=== PATIENT | female | born 1945 | race Caucasian/White ===

== ENCOUNTER 2016-10-06 19:41 | Inpatient (IN) | payer MEDICARE ==
[2016-10-06] MEDS ORDERED: SODIUM CHLORIDE 0.9% 500 ML IV STA (20:21)
[2016-10-06] MEDS ORDERED: ACETAMINOPHEN TAB 500 MG TAB PO STA (20:21)
[2016-10-06] MEDS ORDERED: SODIUM CHLORIDE 0.9% 1,000 ML IV STA (20:21)
[2016-10-06] MEDS ORDERED: PIPERACILLIN-TAZOBACTAM 3.375 GM in DEXTROSE/WATER 1 50ML.BAG IVPB STA (20:23)
--- NOTE | 2016-10-06 20:43 | XR ---
EXAMINATION TYPE: XR chest 2V DATE OF EXAM: 10/06/2016 8:36 PM COMPARISON: NONE HISTORY: Fever and chemotherapy last week. Lung cancer. TECHNIQUE: Frontal and lateral views of the chest are obtained. FINDINGS: Heart size is normal. There is a 5 x 2 cm area of increased density in the right upper lob e right paraspinal and right paratracheal region that is also present on old exam of 07/09/2016 and a ppears slightly increased. The other lung pitts are clear. There are no hilar masses. There is no pl eural effusion. Bony thorax is intact. IMPRESSION: Right upper lobe density consistent with tumor that is slightly increased since last exa m and may indicate progression of tumor. Normal heart.
[2016-10-06 21:31] LABS: Anisocytosis Slight; Aty Lym Flag Slight; CH 34.2; CHCM 36.8; HCT 31.5 % (34.0-46.0); HDW 3.26; HGB 11.3 gm/dL (11.4-16.0); MCH 33.5 pg (25.0-35.0); MCHC 35.9 g/dL (31.0-37.0); MCV 93.2 fL (80.0-100.0); Mean Platelet Volume 6.9; RBC 3.37 m/uL (3.80-5.40); RDW 16.3 % (11.5-15.5); WBC (Perox) 1.63
[2016-10-06 21:38] LABS: WBC 1.7 k/uL (3.8-10.6)
[2016-10-06 21:42] LABS: ALT 21 U/L (9-52); AST 17 U/L (14-36); Alkaline Phosphatase 85 U/L (38-126); Anion Gap 8 mmol/L; Blood Urea Nitrogen 19 mg/dL (7-17); Calcium 8.9 mg/dL (8.4-10.2); Carbon Dioxide 28 mmol/L (22-30); Chloride 101 mmol/L (98-107); Glucose 112 mg/dL (74-99); Non-African American GFR(MDRD) >60 (>60 ml/min/1.73 sqM); Potassium 3.7 mmol/L (3.5-5.1); Sodium 137 mmol/L (137-145); Total Bilirubin 0.8 mg/dL (0.2-1.3)
[2016-10-06 21:46] LABS: Add Differential Manual Differential
[2016-10-06 21:53] LABS: Nucleated Red Blood Cells 0 /100 WBC (0-0); Total Cells Counted 100
[2016-10-06 21:55] LABS: Manual Review Performed
--- NOTE | 2016-10-06 23:03 | ED ---
Fever HPI - General Chief Complaint: Fever Stated Complaint: chemo patient-fever Time Seen by Provider: 10/06/16 19:52 Source: patient Mode of arrival: ambulatory Limitations: no limitations - History of Present Illness Initial Comments: She has fever tonight she just finished her mind radiation last week, she is being treated the for non-small cell lung cancer she also had quite fast heart rate her pulse rate is 141 minutes she came in and now fever was 100.5. She denies any headache no neck stiffness she does have a sore throat and has some degree of shortness of breath no abdominal pain no frequency urgency dysuria no weakness of upper or lower extremity, other review of system are negative - Related Data Home Medications Medication Instructions Recorded Confirmed Levothyroxine Sodium [Synthroid] 25 mcg PO DAILY 07/08/16 10/06/16 Mupirocin 2% Oint [Bactroban 2% 1 applic TOPICAL DAILY PRN 07/08/16 10/06/16 Oint] ALPRAZolam [Xanax] 0.25 - 0.5 mg PO DAILY PRN 10/06/16 10/06/16 Albuterol Sulfate [Proair Hfa] 1 - 2 puff INHALATION RT-Q6H PRN 10/06/16 Dronabinol [Marinol] 5 mg PO HS 10/06/16 10/06/16 Magic Mouth Wash 10 ml PO QID 10/06/16 10/06/16 Pantoprazole Sodium [Protonix] 40 mg PO DAILY 10/06/16 10/06/16 Sucralfate [Carafate] 1 gm PO AC-BID 10/06/16 10/06/16 Allergies Allergy/AdvReac Type Severity Reaction Status Date / Time latex Allergy Itching Verified 10/06/16 19:50 aspartame AdvReac Nausea & Verified 10/06/16 19:50 Vomiting & Diarrhea Review of Systems ROS Statement: Those systems with pertinent positive or pertinent negative responses have been documented in the HPI. ROS Other: All systems not noted in ROS Statement are negative. Past Medical History Past Medical History: Cancer, GERD/Reflux, Thyroid Disorder Additional Past Medical History / Comment(s): hypoglycemia, lung CA History of Any Multi-Drug Resistant Organisms: MRSA Date of last positivie culture/infection: 2007 MDRO Source:: vagina Past Surgical History: Cholecystectomy, Hysterectomy, Orthopedic Surgery, Tonsillectomy Additional Past Surgical History / Comment(s): sinus surgery x 3, bladder stent , lt foot with screws, EGD 07/10/16, left arm surgery Past Anesthesia/Blood Transfusion Reactions: No Reported Reaction Past Psychological History: No Psychological Hx Reported Smoking Status: Former smoker Past Alcohol Use History: None Reported Additional Past Alcohol Use History / Comment(s): smoked 7+ years quit 2011 uses vapor currently Past Drug Use History: None Reported - Past Family History Brother(s) Family Medical History: Cancer Additional Family Medical History / Comment(s): nonhodgkins General Exam - General Exam Comments Initial Comments: General: The patient is awake and alert, in no distress, and does not appear acutely ill. Skin: Skin is warm and dry and no rashes or lesions are noted. Eye: Pupils are equal, round and reactive to light, extra-ocular movements are intact; there is normal conjunctiva bilaterally. Ears, nose, mouth and throat: There are moist mucous membranes and no oral lesions. Neck: The neck is supple, there is no tenderness or JVD. Cardiovascular: There is a regular rate and rhythm. No murmur, rub or gallop is appreciated. Noticed tachycardia, heart rate is around 1 14 bpm Respiratory: To auscultation bilateral, crease breath sounds bilaterally some crackles as well Gastrointestinal: Soft, non-distended, non-tender abdomen without masses or organomegaly noted. There is no rebound or guarding present. Bowel sounds are unremarkable. Back: There is no tenderness to palpation in the midline. There is no obvious deformity. Musculoskeletal: Normal ROM, no tenderness, There is no pedal edema. There is no calf tenderness or swelling. No cords were appreciated. Neurological: CN II-XII intact, Cranial nerves III through XII are intact. There are no obvious motor or sensory deficits. Coordination appears grossly intact. Speech is normal. Psychiatric: Cooperative, appropriate mood & affect, normal judgment. Limitations: no limitations Course Vital Signs 10/06/16 19:45 Temperature 100.3 F H Pulse Rate 141 H Respiratory 20 Rate Blood Pressure 114/67 O2 Sat by Pulse 98 Oximetry She is reassessed at oh 22 for T, she still has a heart rate about 1:30 and blood pressures in the lower side blood pressure at that time was 95 systolic over 65 considering her lung cancer fever and tachycardia and hypotension I think she ought to be observed for at least 24 hours, white count is 1.7, compressive metabolic panel is negative flu as well as strep are negative chest x-ray which showed slightly enlarged lung findings no clear infiltrate was identified Medical Decision Making - Lab Data Result diagrams: 10/06/16 21:05 10/06/16 21:05 Lab Results 10/06/16 10/06/16 10/06/16 Range/Units 21:00 21:05 21:05 WBC 1.7 L* (3.8-10.6) k/uL RBC 3.37 L (3.80-5.40) m/uL Hgb 11.3 L (11.4-16.0) gm/dL Hct 31.5 L (34.0-46.0) % MCV 93.2 (80.0-100.0) fL MCH 33.5 (25.0-35.0) pg MCHC 35.9 (31.0-37.0) g/dL RDW 16.3 H (11.5-15.5) % Plt Count 236 (150-450) k/uL Neutrophils % (Manual) 65.0 % Lymphocytes % (Manual) 22.0 % Monocytes % (Manual) 13.0 % Neutrophils # (Manual) 1.1 L (1.3-7.7) k/uL Lymphocytes # (Manual) 0.4 L (1.0-4.8) k/uL Monocytes # (Manual) 0.2 (0-1.0) k/uL Nucleated RBCs 0 (0-0) /100 WBC Manual Slide Review Performed Anisocytosis Slight Sodium 137 (137-145) mmol/L Potassium 3.7 (3.5-5.1) mmol/L Chloride 101 (98-107) mmol/L Carbon Dioxide 28 (22-30) mmol/L Anion Gap 8 mmol/L BUN 19 H (7-17) mg/dL Creatinine 0.71 (0.52-1.04) mg/dL Est GFR (MDRD) Af Amer >60 (>60 ml/min/1.73 sqM) Est GFR (MDRD) Non-Af >60 (>60 ml/min/1.73 sqM) Glucose 112 H (74-99) mg/dL Calcium 8.9 (8.4-10.2) mg/dL Total Bilirubin 0.8 (0.2-1.3) mg/dL AST 17 (14-36) U/L ALT 21 (9-52) U/L Alkaline Phosphatase 85 (38-126) U/L Total Protein 7.0 (6.3-8.2) g/dL Albumin 4.0 (3.5-5.0) g/dL Influenza Type A RNA (Not Detectd) Influenza Type B (PCR) (Not Detectd) Group A Strep Rapid Negative (Negative) 10/06/16 Range/Units 21:05 WBC (3.8-10.6) k/uL RBC (3.80-5.40) m/uL Hgb (11.4-16.0) gm/dL Hct (34.0-46.0) % MCV (80.0-100.0) fL MCH (25.0-35.0) pg MCHC (31.0-37.0) g/dL RDW (11.5-15.5) % Plt Count (150-450) k/uL Neutrophils % (Manual) % Lymphocytes % (Manual) % Monocytes % (Manual) % Neutrophils # (Manual) (1.3-7.7) k/uL Lymphocytes # (Manual) (1.0-4.8) k/uL Monocytes # (Manual) (0-1.0) k/uL Nucleated RBCs (0-0) /100 WBC Manual Slide Review Anisocytosis Sodium (137-145) mmol/L Potassium (3.5-5.1) mmol/L Chloride (98-107) mmol/L Carbon Dioxide (22-30) mmol/L Anion Gap mmol/L BUN (7-17) mg/dL Creatinine (0.52-1.04) mg/dL Est GFR (MDRD) Af Amer (>60 ml/min/1.73 sqM) Est GFR (MDRD) Non-Af (>60 ml/min/1.73 sqM) Glucose (74-99) mg/dL Calcium (8.4-10.2) mg/dL Total Bilirubin (0.2-1.3) mg/dL AST (14-36) U/L ALT (9-52) U/L Alkaline Phosphatase (38-126) U/L Total Protein (6.3-8.2) g/dL Albumin (3.5-5.0) g/dL Influenza Type A RNA Not Detected (Not Detectd) Influenza Type B (PCR) Not Detected (Not Detectd) Group A Strep Rapid (Negative) Disposition Clinical Impression: Fever, Tachycardia, Hypotension, History of lung cancer Disposition: ADMITTED IP TO THIS HOSP Condition: Good
[2016-10-06] MEDS ORDERED: ALBUTEROL NEBULIZED 2.5 MG/3 ML INHALATION PRN (23:16)
[2016-10-06] MEDS ORDERED: MUPIROCIN 2% OINT 22 GM TUBE TOPICAL PRN (23:16)
[2016-10-06] MEDS ORDERED: DIAZEPAM 2 MG TAB PO STA (23:36)
[2016-10-07 00:59] VITALS: BMI 21.2
[2016-10-07 01:05] LABS: Amorphous Sediment,Urine Occasional /hpf; Appearance,Urine Turbid (Clear); Bacteria,Urine Rare /hpf; Bilirubin,Urine Negative (Negative); Glucose,Urine (UA) Negative (Negative); Ketones,Urine Trace (Negative); Leukocyte Esterase,Urine Large (Negative); Mucus,Urine Rare /hpf; Nitrite,Urine Negative (Negative); Particle Count 5229; Protein,Urine Trace (Negative); RBC,Urine 4 /hpf (0-5); Specific Gravity,Urine 1.033 (1.001-1.035); Squamous Epithelial Cell,Urine 8 /hpf (0-4); Transitional Epi Cells,Urine 1 /hpf (0-1); UA Billing (MACRO vs. MICRO) MICRO; Urobilinogen,Urine <2.0 mg/dL (<2.0); WBC,Urine 59 /hpf (0-5)
[2016-10-07] MEDS ORDERED: PANTOPRAZOLE 40 MG TABLET PO STA (01:13)
[2016-10-07] MEDS ORDERED: DRONABINOL 2.5 MG CAP PO STA (01:13)
[2016-10-07] MEDS: MORPHINE SULFATE 2 MG/ML SYRINGE IVP PRN ×5 (04:20→21:50)
[2016-10-07] MEDS ORDERED: SUCRALFATE 1 GM TAB PO SCH (07:30)
[2016-10-07] MEDS: ALPRAZolam 0.25 MG TAB PO SCH ×2 (08:03→21:47)
[2016-10-07] MEDS: LEVOTHYROXINE 25 MCG TAB PO SCH (08:03)
[2016-10-07] MEDS: PIPERACILLIN-TAZOBACTAM 3.375 GM in DEXTROSE/WATER 1 50ML.BAG IVPB SCH ×2 (08:13→18:02)
[2016-10-07] MEDS ORDERED: MAGIC MOUTH WASH PO SCH (09:00)
[2016-10-07] MEDS ORDERED: PANTOPRAZOLE 40 MG TABLET PO SCH (09:00)
--- NOTE | 2016-10-07 15:22 | P.CNPUL ---
History of Present Illness Consult date: 10/07/16 Requesting physician: Maikol Cox Reason for consult: lung mass Chief complaint: Nausea, vomiting, weakness History of present illness: This is a very pleasant 71-year-old female patient who follows with Dr. Tejeda as her primary care physician. She has a history of hypothyroidism, gastroesophageal reflux disease. She was referred to Dr. Flores on 2015 after having abnormal findings and suspected right upper lobe lung mass and she does have a 15 year pack per day smoking history and had developed weight loss. She had undergone bronchoscopy with biopsies on 07/21/2016 which confirmed non-small cell carcinoma. A PET scan revealed metastatic right bronchial, right hilar, infrahilar and subcarinal lymphadenopathy as well. Since that time she has completed 7 rounds of chemotherapy and 33 of radiation therapy. She completed both just last week. 2 days later she had developed headache and neck pain. The following day she developed nausea and vomiting and difficulty maintaining any nutrition. She had difficulty in swallowing secondary to pain. She presented here yesterday after developing a fever of 100.7. She had ongoing dehydration and weakness and poor urine output. He presented here last evening for the same. She was found to be neutropenic with a WBC of 1.7. Her urine appeared infected and a culture is pending. Influenza screen was negative rapid strep screen negative. She has been hydrated with 0.9 normal saline at 100 mL per hour. She was initiated on Zosyn. Her chest x- ray revealed a right upper lobe density consistent with her mass. She is seen today in consultation. She is awake and alert in no acute distress. She states she is feeling quite a bit better today as compared to yesterday already. She denies any worsening shortness of breath, cough or congestion. She does take morphine prior to her meals and she is able to swallow her food better. She is maintaining good O2 saturations in the high 90s on room air. No fever, no chills or night sweats. Review of Systems 14 point review of system was conducted. All negative other than as mentioned in HPI. Past Medical History Past Medical History: Cancer, GERD/Reflux, Thyroid Disorder Additional Past Medical History / Comment(s): Non-small cell lung CA, completed 7 rounds of chemotherapy and 33 radiation treatments in September 2016. History of Any Multi-Drug Resistant Organisms: MRSA Date of last positivie culture/infection: 2007 MDRO Source:: vagina Past Surgical History: Cholecystectomy, Hysterectomy, Orthopedic Surgery, Tonsillectomy Additional Past Surgical History / Comment(s): sinus surgery x 3, bladder stent , lt foot with screws, EGD 07/10/16, left arm surgery Past Anesthesia/Blood Transfusion Reactions: No Reported Reaction Past Psychological History: No Psychological Hx Reported Smoking Status: Never smoker Past Alcohol Use History: None Reported Additional Past Alcohol Use History / Comment(s): smoked 7+ years quit 2010 uses vapor currently Past Drug Use History: None Reported - Past Family History Brother(s) Family Medical History: Cancer Additional Family Medical History / Comment(s): nonhodgkins Medications and Allergies Home Medications Medication Instructions Recorded Confirmed Type Levothyroxine Sodium [Synthroid] 25 mcg PO DAILY 07/08/16 10/06/16 History Mupirocin 2% Oint [Bactroban 2% 1 applic TOPICAL DAILY PRN 07/08/16 10/06/16 History Oint] ALPRAZolam [Xanax] 0.25 - 0.5 mg PO DAILY PRN 10/06/16 10/06/16 History Albuterol Sulfate [Proair Hfa] 1 - 2 puff INHALATION RT-Q6H PRN 10/06/16 History Dronabinol [Marinol] 5 mg PO HS 10/06/16 10/06/16 History Magic Mouth Wash 10 ml PO QID 10/06/16 10/06/16 History Pantoprazole Sodium [Protonix] 40 mg PO DAILY 10/06/16 10/06/16 History Sucralfate [Carafate] 1 gm PO AC-BID 10/06/16 10/06/16 History Allergies Allergy/AdvReac Type Severity Reaction Status Date / Time latex Allergy Itching Verified 10/06/16 19:50 aspartame AdvReac Nausea & Verified 10/06/16 19:50 Vomiting & Diarrhea Physical Exam Vitals: Vital Signs Temp Pulse Pulse Resp BP BP Pulse Ox 10/07/16 08:00 89 16 10/07/16 07:00 98.3 F 89 16 107/51 98 10/07/16 00:11 98.4 F 101 H 16 111/65 99 10/06/16 23:42 99 F 94 18 108/52 97 10/06/16 23:26 95 18 98/57 96 Intake and Output 10/06/16 10/07/16 10/07/16 22:59 06:59 14:59 Intake Total 1000 Balance 1000 Intake: IV 600 Sodium Chloride 0.9% 1, 600 000 ml @ 100 mls/hr IV . Q10H STA Rx#:[id number] Oral 400 Other: # Voids 2 Weight 61.5 kg GENERAL EXAM: Alert, comfortable in no apparent distress. HEAD: Normocephalic. EYES: Normal reaction of pupils, equal size. NOSE: Clear with pink turbinates. THROAT: No erythema or exudates. NECK: No masses, no JVD. CHEST: No chest wall deformity. LUNGS: Equal air entry with no crackles, wheeze, rhonchi or dullness. CVS: S1 and S2 normal with no audible mumurs, regular rhythm. ABDOMEN: No hepatosplenomegaly, normal bowel sounds, no guarding or rigidity. SPINE: No scoliosis or deformity SKIN: No rashes CENTRAL NERVOUS SYSTEM: No focal deficits, tone is normal in all 4 extremities. Extremities: There is no significant peripheral edema. No clubbing, no cyanosis. Peripheral pulses are intact. Results - Laboratory Findings CBC and BMP: 10/06/16 21:05 10/06/16 21:05 Abnormal lab findings: Abnormal Labs 10/06/16 23:35 Urine Appearance Turbid H Urine Protein Trace H Urine Ketones Trace H Ur Leukocyte Esterase Large H Urine WBC 59 H Ur Squamous Epith Cells 8 H Amorphous Sediment Occasional H Urine Bacteria Rare H Urine Mucus Rare H - Diagnostic Findings Chest x-ray: image reviewed Assessment and Plan Plan: Impression: #1 Generalized weakness and fatigue secondary to neutropenia following chemo/ radiation therapy. #2 Neutropenia. #3 Urinary tract infection. #4 Non-small cell lung cancer status post 7 rounds of chemotherapy and 33 radiation treatments both of which were completed 1 week ago. #5 History of chronic tobacco dependence. #6 Hypothyroidism. #7 Gastroesophageal reflux disease. Plan: The patient was seen and evaluated by Dr. Espinoza. Her chest x-ray and labs were reviewed. We'll continue to hydrate the patient. She remains on Zosyn. Will await final urine culture results. Her urine output has improved. We'll continue with pain management. She is feeling quite a bit better already today as compared to yesterday. We'll increase her activity as tolerated. We'll continue to follow make further recommendations based on her clinical status. Time with Patient: Greater than 30
[2016-10-07] MEDS: SUCRALFATE 1 GM TAB PO SCH (17:57)
--- NOTE | 2016-10-07 18:04 | P.CONS ---
History of Present Illness - Reason for Consult Consult date: 10/07/16 lung cancer Requesting physician: Rony Carter - Chief Complaint fever - History of Present Illness Ms. Yoo is a very pleasant 71 year old female pt of Dr. Wolf who presented with nausea and mild "stomach pain", CXR revealed RUL abnormality , CT Chest showed 3.5 cm RUL mass with hilar and subcarinal lymphadenopathy, PET Scan dated 07/19/16 revealed intense uptake of 11.9 in RUL mass, R hilar & infrahilar lymphadenopathy of 10.0, as well as increase uptake in left thoracic inlet of 5.9 of unknown etiology, no distant mets, bronchoscopy on 07/21/[address] Flores revealed NSCLC. SHe was experiencing anoreixa, wt. loss about 15 lbs in 2 months and nausea. She started treatment with weekly carbo and taxol and concurrent radiation, she completed 7 cycles of chemo and 33 radiation treatments to RUL lung mass last week. The day after radiation competed she started having significant pain when swallowing, sharp, this pain radiates to chest and back and into her head, she has an appetite but has been vomiting for 2 days prior to admission, she states vomiting because of the pain, she does not have oral irritation but in her chest area the pain is significant when she tried to swallow. Over the weekend she started having fevers and her temp was as high a 100.7F so she was instructed to come to hospital. Since admission she had 100.3F fever but none since, she is being seen by ID and on abx, Pulmonary is following as well, she is on carafate, cools solution and pain meds , her pain is not well controlled. She is ambulatory, denies vomiting since admit, no hematemesis, hemoptysis, dysuria, diarrhea or constipation. Review of Systems All systems: negative Constitutional: Reports as per HPI Past Medical History Past Medical History: Cancer, GERD/Reflux, Thyroid Disorder Additional Past Medical History / Comment(s): Non-small cell lung CA, completed 7 rounds of chemotherapy and 33 radiation treatments in September 2016. History of Any Multi-Drug Resistant Organisms: MRSA Year Discovered:: 2007 MDRO Source:: vagina Past Surgical History: Cholecystectomy, Hysterectomy, Orthopedic Surgery, Tonsillectomy Additional Past Surgical History / Comment(s): sinus surgery x 3, bladder stent , lt foot with screws, EGD 07/10/16, left arm surgery Past Anesthesia/Blood Transfusion Reactions: No Reported Reaction Past Psychological History: No Psychological Hx Reported Smoking Status: Never smoker Past Alcohol Use History: None Reported Additional Past Alcohol Use History / Comment(s): smoked 7+ years quit 2010 uses vapor currently Past Drug Use History: None Reported - Past Family History Brother(s) Family Medical History: Cancer Additional Family Medical History / Comment(s): nonhodgkins Medications and Allergies Home Medications Medication Instructions Recorded Confirmed Type Levothyroxine Sodium [Synthroid] 25 mcg PO DAILY 07/08/16 10/06/16 History Mupirocin 2% Oint [Bactroban 2% 1 applic TOPICAL DAILY PRN 07/08/16 10/06/16 History Oint] ALPRAZolam [Xanax] 0.25 - 0.5 mg PO DAILY PRN 10/06/16 10/06/16 History Albuterol Sulfate [Proair Hfa] 1 - 2 puff INHALATION RT-Q6H PRN 10/06/16 History Dronabinol [Marinol] 5 mg PO HS 10/06/16 10/06/16 History Magic Mouth Wash 10 ml PO QID 10/06/16 10/06/16 History Pantoprazole Sodium [Protonix] 40 mg PO DAILY 10/06/16 10/06/16 History Sucralfate [Carafate] 1 gm PO AC-BID 10/06/16 10/06/16 History Allergies Allergy/AdvReac Type Severity Reaction Status Date / Time latex Allergy Itching Verified 10/06/16 19:50 aspartame AdvReac Nausea & Verified 10/06/16 19:50 Vomiting & Diarrhea Physical Exam Vitals: Vital Signs Temp Pulse Pulse Resp BP BP Pulse Ox 10/07/16 16:07 98.9 F 88 20 108/55 98 10/07/16 08:00 89 16 10/07/16 07:00 98.3 F 89 16 107/51 98 10/07/16 00:11 98.4 F 101 H 16 111/65 99 10/06/16 23:42 99 F 94 18 108/52 97 10/06/16 23:26 95 18 98/57 96 Intake and Output 10/07/16 10/07/1610/07/17 06:59 14:59 22:59 Intake Total 1000 120 Balance 1000 120 Intake: IV 600 Sodium Chloride 0.9% 1, 600 000 ml @ 100 mls/hr IV . Q10H STA Rx#:[id number] Oral 400 120 Other: # Voids 2 3 Weight 61.5 kg - Constitutional General appearance: average body habitus, cooperative, no acute distress - EENT Eyes: anicteric sclerae, normal appearance ENT: normal oropharynx - Neck Neck: no lymphadenopathy - Respiratory Respiratory: bilateral: CTA - Cardiovascular Heart sounds: normal: S1, S2 leg Peripheral Edema: bilateral: None - Gastrointestinal General gastrointestinal: normal bowel sounds - Neurologic Neurologic: CNII-XII intact - Musculoskeletal Musculoskeletal: strength equal bilaterally - Psychiatric Psychiatric: A&O x's 3, appropriate affect, intact judgment & insight Results CBC & Chem 7: 10/06/16 21:05 10/06/16 21:05 Labs: Abnormal Lab Results - Last 24 Hours (Table) 10/06/16 Range/Units 23:35 Urine Appearance Turbid H (Clear) Urine Protein Trace H (Negative) Urine Ketones Trace H (Negative) Ur Leukocyte Esterase Large H (Negative) Urine WBC 59 H (0-5) /hpf Ur Squamous Epith Cells 8 H (0-4) /hpf Amorphous Sediment Occasional H (None) /hpf Urine Bacteria Rare H (None) /hpf Urine Mucus Rare H (None) /hpf Microbiology - Last 24 Hours (Table) 10/06/16 23:35 Urine Culture - Preliminary Urine,Voided Assessment and Plan (1) Radiation-induced esophagitis Narrative/Plan: Pt is currently on all supportive meds, pain meds will be titrated for comfort. We discussed staying on liquid, VERY soft diet and she agreed. Status: Acute (2) Fever Narrative/Plan: Pt is on abx and granix was started. Her ANC is 1100 but she is febrile. Status: Acute (3) Mass of upper lobe of right lung Narrative/Plan: Pt just completed treatment last week, follow up imaging for treatment evaluation would not be ordered for a few weeks yet. Slight changes noted on CXR report have been noted and scans will be ordered in a few weeks. Status: Chronic
--- NOTE | 2016-10-07 18:44 | HP ---
DATE OF ADMISSION: 10/06/2016 PRESENTING COMPLAINT: Fever. HISTORY OF PRESENTING COMPLAINT: This is a pleasant 71-year-old patient of Dr. Tejeda, followed by Dr. Wolf. Patient has a diagnosis of [id number] lung cancer; just finished chemo and radiation treatment. Radiation was done by Dr. John. Patient's chronic other stable conditions include GERD, hypothyroidism. Patient presents with a fever of 100.5 and decreased urine output, strong-appearing urine. Patient's appetite is fair, but patient has radiation side effects and is finding it difficult to swallow, with some vomiting, for which she has been given Magic solution, not with much help. Patient's urine came back positive. She was started for Zosyn and admitted for the same. REVIEW OF SYSTEMS: CONSTITUTIONAL: Weak, tired, febrile. HEENT: None. RESPIRATORY: None. CARDIOVASCULAR: None. GASTROINTESTINAL: Some painful swallowing. GENITOURINARY: Strong urine. MUSCULOSKELETAL: None. DERMATOLOGIC: None. HEMATOLOGIC: None. LYMPHATIC: None. PSYCHIATRY: None. NEUROLOGICAL: None. PAST MEDICAL HISTORY: 1. GERD. 2. Hypothyroid. 3. [id number] lung cancer. PAST SURGICAL HISTORY: 1. Cholecystectomy. 2. Hysterectomy. 3. Orthopedic surgery. 4. Tonsillectomy. 5. Sinus surgery x2. 6. Bladder stent. 7. Left foot with screws. 8. EGD. 9. Left arm surgery. SOCIAL HISTORY: Patient smoked for about 7 years, stopped in 2010. . Homemaker. FAMILY HISTORY: Non-Hodgkin's lymphoma. HOME MEDICATIONS: 1. Protonix 40 mg a day. 2. Magic mouthwash 10 mL q.i.d. 3. Marinol 5 mg at bedtime. 4. ProAir 1 to 2 puffs q.6 p.r.n. 5. Carafate 1 gram before meals b.i.d. 6. Synthroid 25 mcg a day. 7. Bactroban 2% topically daily p.r.n. 8. Xanax 0.25 to 0.5 mg p.o. daily p.r.n. ALLERGIES: 1. LATEX. 2. ASPARTAME. On examination, temperature 98.3, pulse 89, respiratory rate 16, blood pressure 107/51, pulse ox 98% on room air. Initially patient had a temperature of 100.3 with a pulse of 141. GENERAL APPEARANCE: Thin build. Sitting up. Tired-appearing. EYES: Pupils equal. Conjunctivae normal. HEENT: Oral cavity normal. NECK: JVD not raised. Mass not palpable. RESPIRATORY: Effort normal. LUNGS: Slightly decreased breath sounds. CARDIOVASCULAR: First and second sounds normal. No edema. ABDOMEN: Soft, nontender. Liver and spleen not palpable. LYMPHATIC: No lymph node palpable in neck or axillae. PSYCHIATRY: Alert and oriented x3. Mood and affect normal. NEUROLOGICAL: Pupils equal. Cranial nerves grossly intact. Power and sensation grossly intact. INVESTIGATIONS: White count 1.7, hemoglobin 11.3, platelets 236. Potassium 3.7. BUN 19, creatinine 0.71. UA positive for leukocyte esterase, large WBC. ASSESSMENT: 1. Febrile neutropenia from underlying urinary tract infection. Patient just finished chemotherapy. 2. [id number] lung cancer. Patient just finished her chemotherapy and radiation treatment. Last she was told that her tumor had shrunk. 3. Bicytopenia from chemotherapy. 4. Gastroesophageal reflux disease. 5. Hypothyroidism. 6. Acute urinary tract infection. PLAN: Patient is IV Zosyn. Home medications are resumed. Care was discussed with the patient. Subcutaneous heparin for DVT prophylaxis. Will check patient's thyroid levels.
[2016-10-07] MEDS: FILGRASTIM-SNDZ 300 MCG/0.5 ML SYRINGE SQ SCH (19:07)
[2016-10-07] MEDS: DRONABINOL 2.5 MG CAP PO SCH (21:47)
[2016-10-07] MEDS: PANTOPRAZOLE 40 MG TABLET PO SCH (21:47)
[2016-10-08] MEDS: PIPERACILLIN-TAZOBACTAM 3.375 GM in DEXTROSE/WATER 1 50ML.BAG IVPB SCH ×4 (00:40→23:15)
[2016-10-08] MEDS: MORPHINE SULFATE 2 MG/ML SYRINGE IVP PRN ×4 (02:41→23:15)
[2016-10-08] MEDS: ONDANSETRON 4 MG/2 ML VIAL IVP PRN (09:11)
[2016-10-08] MEDS: SUCRALFATE 1 GM TAB PO SCH ×3 (10:09→18:00)
[2016-10-08] MEDS: LEVOTHYROXINE 25 MCG TAB PO SCH (10:09)
[2016-10-08] MEDS: ALPRAZolam 0.25 MG TAB PO SCH ×2 (10:09→21:06)
--- NOTE | 2016-10-08 13:37 | P.PN ---
Subjective This is a very pleasant 71-year-old female patient who follows with Dr. Tejeda as her primary care physician. She has a history of hypothyroidism, gastroesophageal reflux disease. She was referred to Dr. Flores on 2015 after having abnormal findings and suspected right upper lobe lung mass and she does have a 15 year pack per day smoking history and had developed weight loss. She had undergone bronchoscopy with biopsies on 07/21/2016 which confirmed non-small cell carcinoma. A PET scan revealed metastatic right bronchial, right hilar, infrahilar and subcarinal lymphadenopathy as well. Since that time she has completed 7 rounds of chemotherapy and 33 of radiation therapy. She completed both just last week. 2 days later she had developed headache and neck pain. The following day she developed nausea and vomiting and difficulty maintaining any nutrition. She had difficulty in swallowing secondary to pain. She presented here yesterday after developing a fever of 100.7. She had ongoing dehydration and weakness and poor urine output. He presented here last evening for the same. She was found to be neutropenic with a WBC of 1.7. Her urine appeared infected and a culture is pending. Influenza screen was negative rapid strep screen negative. She has been hydrated with 0.9 normal saline at 100 mL per hour. She was initiated on Zosyn. Her chest x- ray revealed a right upper lobe density consistent with her mass. The patient is seen again today 10/08/2016 in follow-up. She is awake and alert in no acute distress. She is feeling better today as compared to yesterday. She is somewhat stronger. She did have a small emesis this morning but has since been able to keep a few bites down. No diarrhea. She denies any shortness of breath, cough or congestion. Room air saturations in the upper 90s. Her urine culture remains in progress. Currently afebrile. No orthostatic hypotension. Objective - Vital Signs Vital signs: Vital Signs Temp 98.3 F 10/08/16 08:04 Pulse 90 10/08/16 08:04 Resp 18 10/08/16 08:04 BP 105/50 10/08/16 08:04 Pulse Ox 90 L 10/08/16 08:04 Intake & Output 10/07/16 10/08/16 10/08/16 18:59 06:59 18:59 Intake Total 120 300 Balance 120 300 Intake: IV 50 Piperacillin-Tazobactam 3 50 .375 gm In Dextrose/Water 1 50ml.bag @ 12.5 mls/hr IVPB Q8HR [facility] Rx#: [id number] Oral 120 250 Other: Voiding Method Toilet Toilet # Voids 3 1 - Exam GENERAL EXAM: Alert, fairly comfortable in no apparent distress. HEAD: Normocephalic. EYES: Normal reaction of pupils, equal size. NOSE: Clear with pink turbinates. THROAT: Slight erythema no exudates. NECK: No masses, no JVD. CHEST: No chest wall deformity. LUNGS: Equal air entry with no crackles, wheeze, rhonchi or dullness. CVS: S1 and S2 normal with no audible murmurs, regular rhythm. ABDOMEN: No hepatosplenomegaly, normal bowel sounds, no guarding or rigidity. SPINE: No scoliosis or deformity SKIN: No rashes CENTRAL NERVOUS SYSTEM: No focal deficits, tone is normal in all 4 extremities. Extremities: There is no peripheral edema. No clubbing, no cyanosis. Peripheral pulses are intact intact. - Labs CBC & Chem 7: 10/06/16 21:05 10/06/16 21:05 Labs: Microbiology - Last 24 Hours (Table) 10/06/16 23:35 Urine Culture - Preliminary Urine,Voided Assessment and Plan Plan: Impression: #1 Generalized weakness and fatigue secondary to neutropenia following chemo/ radiation therapy. #2 Neutropenia with febrile illness. #3 Urinary tract infection, culture pending. #4 Non-small cell lung cancer status post 7 rounds of chemotherapy (carbo and Taxol) and 33 radiation treatments both of which were completed 1 week ago. #5 History of chronic tobacco dependence. #6 Hypothyroidism. #7 Gastroesophageal reflux disease. Plan: The patient was seen and evaluated by Dr. Espinoza. We'll continue to hydrate the patient. She remains on Zosyn. Will await final urine culture results. Her urine output has improved. We'll continue with pain management. We'll increase her activity as tolerated. We'll continue to follow make further recommendations based on her clinical status.
[2016-10-08] MEDS: FILGRASTIM-SNDZ 300 MCG/0.5 ML SYRINGE SQ SCH (19:14)
[2016-10-08] MEDS: DRONABINOL 2.5 MG CAP PO SCH (21:06)
[2016-10-08] MEDS: PANTOPRAZOLE 40 MG TABLET PO SCH (21:06)
[2016-10-08] MEDS: MAG HYDROX/AL HYDROX/SIMETH 30 ML, LIDOCAINE VISCOUS 30 ML, diphenhydrAMINE ELIXIR 75 M... PO SCH ×8 (21:39→23:21)
--- NOTE | 2016-10-08 23:12 | PN ---
DATE OF SERVICE: 10/08/2016 PRESENTING COMPLAINT: Difficulty swallowing and fever. INTERVAL HISTORY: This is a patient having painful swallowing, probably likely from aphthous ulcer from chemoradiation. She also had a UTI. The fever has come down. at the bedside. Barely able to eat. Review of systems done for constitutional, cardiovascular, GI, pulmonary; relevant findings as above. Current medications include IV Zosyn. On examination, temperature 99, pulse 95, respiration 18, blood pressure 105/50. GENERAL APPEARANCE: Sitting up, comfortable. EYES: Pupils equal. Conjunctivae normal. NECK: JVD not raised. RESPIRATORY: Effort normal. LUNGS: Fair air entry. CARDIOVASCULAR: First and second sounds normal. No edema. ABDOMEN: Soft, nontender. PSYCHIATRY: Alert and oriented x3. Mood and affect normal. INVESTIGATIONS: No blood work from today. TSH is 1.5. ASSESSMENT: 1. Febrile neutropenia from underlying urinary tract infection, clinically improving. 2. Yvr-ggdou-aelm lung cancer. Patient just finished chemo and radiation treatment, and she was last told that her tumor had shrunk. 3. Bicytopenia from chemotherapy. 4. Odynophagia, likely from esophageal ulcerations. 5. Gastroesophageal reflux disease. 6. Hypothyroidism. 7. Acute urinary tract infection. PLAN: Will try Angel's solution. Will discontinue the Carafate, as this will not be beneficial ( ) absorption of the medications. Care was discussed in detail with the patient and her .
[2016-10-09] MEDS: PIPERACILLIN-TAZOBACTAM 3.375 GM in DEXTROSE/WATER 1 50ML.BAG IVPB SCH ×2 (07:48→15:52)
[2016-10-09] MEDS: MORPHINE SULFATE 2 MG/ML SYRINGE IVP PRN ×3 (07:49→17:08)
[2016-10-09] MEDS: MAG HYDROX/AL HYDROX/SIMETH 30 ML, LIDOCAINE VISCOUS 30 ML, diphenhydrAMINE ELIXIR 75 M... PO SCH ×12 (07:53→21:08)
[2016-10-09] MEDS: LEVOTHYROXINE 25 MCG TAB PO SCH (08:35)
[2016-10-09] MEDS: SUCRALFATE 1 GM TAB PO SCH ×3 (08:35→17:06)
[2016-10-09] MEDS: ALPRAZolam 0.25 MG TAB PO SCH ×2 (08:37→21:09)
[2016-10-09 09:21] LABS: Anion Gap 8 mmol/L; Blood Urea Nitrogen 5 mg/dL (7-17); Calcium 8.1 mg/dL (8.4-10.2); Carbon Dioxide 27 mmol/L (22-30); Chloride 102 mmol/L (98-107); Glucose 140 mg/dL (74-99); Non-African American GFR(MDRD) >60 (>60 ml/min/1.73 sqM); Potassium 3.3 mmol/L (3.5-5.1); Sodium 137 mmol/L (137-145)
[2016-10-09 09:37] LABS: Anisocytosis Slight; Basophils % (A) 0 %; CHCM 35.9; Eosinophils % (A) 0 %; HCT 26.9 % (34.0-46.0); HDW 3.65; Luc # (Auto) 0.16; Luc % (Auto) 3; Lymphocytes # (A) 0.2 k/uL (1.0-4.8); Lymphocytes % (A) 4 %; MCH 33.9 pg (25.0-35.0); MCHC 35.6 g/dL (31.0-37.0); MCV 95.3 fL (80.0-100.0); Macrocytosis Slight; Mean Platelet Volume 6.7; Monocytes # (A) 0.3 k/uL (0-1.0); Monocytes % (A) 5 %; Neutrophils # (A) 5.3 k/uL (1.3-7.7); Neutrophils % (A) 89 %; Poikilocytosis Slight; RBC 2.82 m/uL (3.80-5.40); RDW 17.1 % (11.5-15.5)
[2016-10-09 09:42] LABS: HGB 9.6 gm/dL (11.4-16.0)
--- NOTE | 2016-10-09 14:06 | P.PN ---
Subjective Principal diagnosis: Neutropenic fever 71 year old female with history of stage IIIA NSCLC s/p concurrent chemoradiation to a dose of 66 Gy finishing her treatment on 10/02/2016. She unfortunately has been admitted with fever and low WBC. When she first presented she also had tachycardia and was likely dehydrated. At this time the patient notes she is feeling better. She does continue to have difficulty with esophagitis secondary to her radiotherapy. Initially she had some relief from the magic mouth-wash but this is now requiring pain medication. It is likely because of her difficulty swallowing that the patient has not been eating or drinking as well the past few days prior to her admission. At this time she denies dyspnea, cough, or urinary complaints. Objective - Vital Signs Vital signs: Vital Signs Temp 99.4 F 10/09/16 08:24 Pulse 96 10/09/16 08:24 Resp 18 10/09/16 08:24 BP 109/51 10/09/16 08:24 Pulse Ox 92 L 10/09/16 08:24 Intake & Output 10/08/16 10/09/16 10/09/16 18:59 06:59 18:59 Intake Total 50 Balance 50 Intake: IV 50 Piperacillin-Tazobactam 3 50 .375 gm In Dextrose/Water 1 50ml.bag @ 12.5 mls/hr IVPB Q8HR [facility] Rx#: [id number] Other: Voiding Method Toilet Toilet Toilet # Voids 2 2 2 - Constitutional General appearance: Present: average body habitus. Absent: mild distress - EENT Eyes: Present: EOMI, PERRLA - Neck Neck: Absent: lymphadenopathy - Respiratory Respiratory: bilateral: CTA - Cardiovascular Rhythm: regular - Gastrointestinal General gastrointestinal: Present: normal bowel sounds - Integumentary Integumentary: Absent: flushed, jaundiced - Neurologic Neurologic: Present: CNII-XII intact. Absent: focal deficits - Musculoskeletal Musculoskeletal: Absent: generalized weakness - Psychiatric Psychiatric: Present: A&O x's 3 - Labs CBC & Chem 7: 10/09/16 08:40 10/09/16 08:40 Labs: Abnormal Lab Results - Last 24 Hours (Table) 10/09/16 10/09/16 Range/Units 08:40 08:40 RBC 2.82 L (3.80-5.40) m/uL Hgb 9.6 L D (11.4-16.0) gm/dL Hct 26.9 L (34.0-46.0) % RDW 17.1 H (11.5-15.5) % Lymphocytes # 0.2 L (1.0-4.8) k/uL Potassium 3.3 L (3.5-5.1) mmol/L BUN 5 L (7-17) mg/dL Glucose 140 H (74-99) mg/dL Calcium 8.1 L (8.4-10.2) mg/dL Microbiology - Last 24 Hours (Table) 10/06/16 23:35 Urine Culture - Final Urine,Voided Assessment and Plan (1) History of lung cancer Status: Acute Plan: At this time, the patient is feeling better after a couple days of hospitalization. She does continue to require pain medication for radiation esophagitis which will resolve over time. I have recommended the patient keep her current follow-up appointment and repeat systemic imaging scheduled for and 11/01/16 respectively. Time with Patient: Less than 30
--- NOTE | 2016-10-09 17:05 | P.PN ---
Subjective Principal diagnosis: febrile neutropenia Pt seen in follow up, she was able to eat some oatmeal and eggs, she is tolerating liquids, Popsicles and jello, the pain with swallowing is a little better, she definitely feels better then on admit, she no longer feels dizzy, has more energy and feels stronger. Denies fevers, chest pain, dysuria, she has not had a BM since Mon, she is fully ambulatory. Objective - Vital Signs Vital signs: Vital Signs Temp 99.4 F 10/09/16 08:24 Pulse 96 10/09/16 08:24 Resp 18 10/09/16 08:24 BP 109/51 10/09/16 08:24 Pulse Ox 92 L 10/09/16 08:24 Intake & Output 10/08/16 10/09/16 10/09/16 18:59 06:59 18:59 Intake Total 50 Balance 50 Intake: IV 50 Piperacillin-Tazobactam 3 50 .375 gm In Dextrose/Water 1 50ml.bag @ 12.5 mls/hr IVPB Q8HR [facility] Rx#: [id number] Other: Voiding Method Toilet Toilet # Voids 2 2 - Constitutional General appearance: Present: average body habitus, cooperative, no acute distress - EENT Eyes: Present: anicteric sclerae, normal appearance ENT: Present: normal oropharynx - Neck Neck: Absent: lymphadenopathy, normal ROM, other, rigidity, stridor, thyromegaly - Respiratory Respiratory: bilateral: CTA - Cardiovascular Rhythm: regular Heart sounds: normal: S1, S2 - Gastrointestinal General gastrointestinal: Present: normal bowel sounds, soft - Integumentary Integumentary: Present: normal - Neurologic Neurologic: Present: CNII-XII intact - Musculoskeletal Musculoskeletal: Present: strength equal bilaterally - Psychiatric Psychiatric: Present: A&O x's 3, appropriate affect, intact judgment & insight - Labs CBC & Chem 7: 10/09/16 08:40 10/09/16 08:40 Labs: Microbiology - Last 24 Hours (Table) 10/06/16 23:35 Urine Culture - Final Urine,Voided Assessment and Plan (1) Radiation-induced esophagitis Narrative/Plan: Pt is currently on all supportive meds, pain med working fairly well. She tolerated eggs and oatmeal this AM, she is tolerating liquids well. Status: Acute (2) Fever Narrative/Plan: No fevers since temp on admit, cultures reported negative to today. Status: Acute (3) Mass of upper lobe of right lung Narrative/Plan: Pt completed treatment last week, follow up imaging for treatment evaluation would not be ordered for a few weeks yet. Slight changes noted on CXR report have been noted and treatment follow up scans will be ordered in a few weeks. Status: Chronic (4) Leukopenia due to antineoplastic chemotherapy Narrative/Plan: Granix is ordered, ANC is 5.3 today, will cont granix through to tomorrow, labs will be reviewed Status: Acute Plan: Colace ordered at pt request for constipation, no BM since Thursday
[2016-10-09] MEDS: FILGRASTIM-SNDZ 300 MCG/0.5 ML SYRINGE SQ SCH (17:56)
[2016-10-09] MEDS: PANTOPRAZOLE 40 MG TABLET PO SCH (21:09)
[2016-10-09] MEDS: SENNOSIDES 8.6 MG TAB PO SCH ×2 (21:12→21:17)
--- NOTE | 2016-10-09 23:52 | PN ---
DATE OF SERVICE: 10/09/2016 PRESENTING COMPLAINT: Difficulty swallowing, fever. INTERVAL HISTORY: This is a patient having painful swallowing felt to be esophagitis, aphthous ulcers from chemoradiation. Also had a UTI. Started the patient on Angel's solution yesterday and getting food at room temperature, with which she is doing somewhat better. Also being treated for UTI. Review of systems done for constitutional, cardiovascular, GI, pulmonary; relevant findings as above. Current medications are reviewed that include Zosyn and Angel's solution. Patient is also on filgrastim. On examination, afebrile. Temperature 99.4, pulse 96, respiration 18, blood pressure 109/51, pulse ox 92% on room air. GENERAL APPEARANCE: Sitting up, comfortable. EYES: Pupils equal. Conjunctivae pale. NECK: JVD not raised. Mass not palpable. RESPIRATORY: Effort normal. LUNGS: Fair air entry. CARDIOVASCULAR: First and second sounds normal. No edema. ABDOMEN: Soft, nontender. PSYCHIATRY: Alert and oriented x3. Mood and affect normal. INVESTIGATIONS: Hemoglobin 9.6. Potassium 3.3. Urine culture negative. ASSESSMENT: 1. Febrile neutropenia from underlying urinary tract infection, improving. 2. Lun-jdehu-ekxa lung cancer. Patient just finished chemoradiation treatment. 3. Bicytopenia from chemotherapy; getting filgrastim. 4. Odynophagia, likely from esophageal ulcerations from radiation, improving. 5. Gastroesophageal reflux disease. 6. Hypothyroidism. 7. Acute urinary tract infection. PLAN: Will continue with Angel's solution. Patient's oral intake is improving. Continue with antibiotic. Patient's white count has come up. Hopefully the filgrastim can be discontinued. Will follow.
[2016-10-10] MEDS: PIPERACILLIN-TAZOBACTAM 3.375 GM in DEXTROSE/WATER 1 50ML.BAG IVPB SCH ×4 (00:07→23:46)
[2016-10-10] MEDS: MAG HYDROX/AL HYDROX/SIMETH 30 ML, LIDOCAINE VISCOUS 30 ML, diphenhydrAMINE ELIXIR 75 M... PO SCH ×12 (07:25→20:56)
[2016-10-10] MEDS: ONDANSETRON 4 MG/2 ML VIAL IVP PRN (07:26)
[2016-10-10] MEDS: LEVOTHYROXINE 25 MCG TAB PO SCH (07:29)
[2016-10-10] MEDS: SENNOSIDES 8.6 MG TAB PO SCH ×2 (07:29→20:55)
[2016-10-10] MEDS: ALPRAZolam 0.25 MG TAB PO SCH ×2 (07:42→20:59)
[2016-10-10 14:50] LABS: Anisocytosis Slight; Aty Lym Flag Slight; CH 33.8; CHCM 34.9; HCT 27.9 % (34.0-46.0); HDW 3.86; HGB 9.5 gm/dL (11.4-16.0); MCH 33.2 pg (25.0-35.0); MCV 97.5 fL (80.0-100.0); Macrocytosis Slight; Mean Platelet Volume 6.7; Poikilocytosis Slight; RBC 2.86 m/uL (3.80-5.40); RDW 17.3 % (11.5-15.5); WBC 5.9 k/uL (3.8-10.6); WBC (Perox) 5.99
[2016-10-10 14:59] LABS: Anion Gap 7 mmol/L; Blood Urea Nitrogen 9 mg/dL (7-17); Calcium 8.3 mg/dL (8.4-10.2); Carbon Dioxide 31 mmol/L (22-30); Chloride 101 mmol/L (98-107); Glucose 117 mg/dL (74-99); Non-African American GFR(MDRD) >60 (>60 ml/min/1.73 sqM); Potassium 3.3 mmol/L (3.5-5.1); Sodium 139 mmol/L (137-145)
--- NOTE | 2016-10-10 15:05 | P.PN ---
Subjective Principal diagnosis: febrile neutropenia and radiation esophagitis Patient is seen today in follow-up. She states feeling better today than she did yesterday. She states that she ate most of her breakfast and some of her lunch. Her throat pain is much better controlled, she has had a bowel movement today. Objective - Vital Signs Vital signs: Vital Signs Temp 98.6 F 10/10/16 07:00 Pulse 87 10/10/16 07:00 Resp 16 10/10/16 08:00 BP 103/55 10/10/16 07:00 Pulse Ox 96 10/10/16 07:00 Intake & Output 10/09/16 10/10/16 10/10/16 18:59 06:59 18:59 Intake Total 250 500 Balance 250 500 Weight 61.5 kg Intake: IV 50 50 Piperacillin-Tazobactam 3 50 50 .375 gm In Dextrose/Water 1 50ml.bag @ 12.5 mls/hr IVPB Q8HR [facility] Rx#: [id number] Oral 200 450 Other: Voiding Method Toilet Toilet Toilet # Voids 2 1 4 # Bowel Movements 6 - Exam Well-developed, well-nourished female sitting up in bed she is in no acute distress she is alert, oriented 4. Patient is in no visible respiratory distress, she is able to move about independently without any assistance or assistive devices. - Labs CBC & Chem 7: 10/10/16 14:33 10/09/16 08:40 Labs: Abnormal Lab Results - Last 24 Hours (Table) 10/10/16 Range/Units 14:33 RBC 2.86 L (3.80-5.40) m/uL Hgb 9.5 L (11.4-16.0) gm/dL Hct 27.9 L (34.0-46.0) % RDW 17.3 H (11.5-15.5) % Assessment and Plan (1) Radiation-induced esophagitis Narrative/Plan: Continue all supportive meds, pain med working better at this time. Advanced diet to patient tolerance. Status: Acute (2) Fever Narrative/Plan: No fevers since admission. Cultures have returned negative. Patient has been on empiric antibiotics. Status: Acute (3) Mass of upper lobe of right lung Narrative/Plan: Patient is status post weekly carboplatin and Taxol with radiation 33 treatments. Patient will follow-up as directed, follow-up imaging in the next 2 -3 weeks. Status: Chronic (4) Leukopenia due to antineoplastic chemotherapy Narrative/Plan: Significant improvement with G-CSF. G-CSF will be discontinued today. Status: Acute Plan: Patient had BM today, continue Colace, hold for diarrhea.
[2016-10-10 15:19] LABS: Add Differential Manual Differential
[2016-10-10 15:21] LABS: Nucleated Red Blood Cells 0 /100 WBC (0-0); Polychromasia Present; Total Cells Counted 100; Toxic Granulation Present
[2016-10-10] MEDS: SUCRALFATE 1 GM TAB PO SCH ×2 (16:51→20:55)
[2016-10-10] MEDS: FILGRASTIM-SNDZ 300 MCG/0.5 ML SYRINGE SQ SCH (18:28)
[2016-10-10] MEDS ORDERED: LOPERAMIDE 2 MG CAP PO PRN (20:51)
[2016-10-10] MEDS: PANTOPRAZOLE 40 MG TABLET PO SCH (20:56)
[2016-10-10] MEDS: MORPHINE SULFATE 2 MG/ML SYRINGE IVP PRN (22:46)
[2016-10-11] MEDS: ONDANSETRON 4 MG/2 ML VIAL IVP PRN (05:31)
[2016-10-11] MEDS: SUCRALFATE 1 GM TAB PO SCH ×4 (07:28→20:03)
[2016-10-11] MEDS: LEVOTHYROXINE 25 MCG TAB PO SCH (07:28)
[2016-10-11] MEDS: ALPRAZolam 0.25 MG TAB PO SCH ×2 (07:28→20:09)
[2016-10-11] MEDS: MAG HYDROX/AL HYDROX/SIMETH 30 ML, LIDOCAINE VISCOUS 30 ML, diphenhydrAMINE ELIXIR 75 M... PO SCH ×16 (07:31→20:03)
[2016-10-11] MEDS: SENNOSIDES 8.6 MG TAB PO SCH ×2 (07:33→20:02)
[2016-10-11] MEDS: PIPERACILLIN-TAZOBACTAM 3.375 GM in DEXTROSE/WATER 1 50ML.BAG IVPB SCH (08:41)
--- NOTE | 2016-10-11 09:13 | PN ---
DATE OF SERVICE: 10/10/2016 PRESENTING COMPLAINT: Difficulty swallowing. INTERVAL HISTORY: This patient was seen by me yesterday on 10/10/2016. Patient is status post chemoradiation and having difficulty swallowing with an element of esophagitis ( ) ulcers. The patient is doing much better with Angel solution. I held off the Carafate but patient wants me to put that back on so I am doing that, she finds it helpful. Patient did have one bout of loose stool. Review of systems done for constitutional, cardiovascular, GI, pulmonary; relevant findings as above. Current medications are reviewed and include Zosyn and Angel solution. On examination, temperature 98.3, pulse 98, respirations 16, blood pressure 101/55, pulse ox 96% on room air. GENERAL APPEARANCE: Sitting up in bed, comfortable. EYES: Pupils equal, conjunctivae pale. NECK: JVD not raised. Mass not palpable. RESPIRATORY: Effort normal. Lungs are clear. CARDIOVASCULAR: First and second sounds normal. No edema. ABDOMEN: Soft, nontender. Liver and spleen not palpable. PSYCHIATRY: Alert and oriented x3. Mood and affect normal. INVESTIGATIONS: Hemoglobin 9.5. White count 5.9. Potassium 3.3. Urine culture unremarkable. ASSESSMENT: 1. Febrile neutropenia from underlying urinary tract infection, clinically improved. 2. Non-small cell lung cancer. The patient has just been on chemo and radiation treatment. 3. Bicytopenia from chemotherapy getting ( ) responded. 4. Odynophagia likely from esophageal ulceration and some radiation, improving. 5. Gastroesophageal reflux disease. 6. Hypothyroidism. 7. Acute urinary tract infection. PLAN: Hopefully patient can be discharged by tomorrow. When I saw the patient we were awaiting input from oncology. Overall the patient is doing better. Will switch the patient to Augmentin and give another 5 doses.
[2016-10-11 10:29] LABS: Anion Gap 6 mmol/L; Blood Urea Nitrogen 11 mg/dL (7-17); Calcium 8.4 mg/dL (8.4-10.2); Carbon Dioxide 30 mmol/L (22-30); Chloride 102 mmol/L (98-107); Glucose 139 mg/dL (74-99); Non-African American GFR(MDRD) >60 (>60 ml/min/1.73 sqM); Potassium 3.2 mmol/L (3.5-5.1); Sodium 138 mmol/L (137-145)
[2016-10-11] MEDS ORDERED: Potassium Replacement Protocol 1 EACH MISC MISCELLANE PRN (10:29)
[2016-10-11] MEDS: CHOLESTYRAMINE (WITH SUGAR) 4 GM PACKET PO SCH ×3 (11:49→20:02)
[2016-10-11] MEDS: POTASSIUM CHLORIDE 10 MEQ in WATER FOR INJECTION 1 100ML.BAG IVPB SCH ×2 (11:49→12:44)
[2016-10-11] MEDS: SODIUM CHLORIDE 0.9% 1,000 ML IV SCH ×2 (11:50→20:02)
[2016-10-11] MEDS ORDERED: AMOXIC-POT CLAV 875-125MG 1 EACH TAB PO SCH (12:00)
--- NOTE | 2016-10-11 12:16 | PN ---
Patient is admitted with febrile neutropenia. All the cultures were negative. Patient is on empiric antibiotics for possibility of urinary tract infection on Augmentin at this point of time, but patient is having significant diarrhea. All urine cultures are negative so far. I will discontinue antibiotics in spite of febrile neutropenia. Patient is not neutropenic anymore. Patient received almost 7 days of antibiotics. I will watch the patient without antibiotics today. If her diarrhea improves by tomorrow, patient will be discharged tomorrow. Patient will be started on Questran as well. REVIEW OF SYSTEMS: CARDIOVASCULAR: No chest pain, no orthopnea, no PND, no palpitations. PULMONARY: Denied any shortness of breath. No cough or hemoptysis. GASTROINTESTINAL: As described in HPI. Patient's C. difficile testing is negative. NEUROLOGIC: No headaches, no weakness, no numbness. Medications were reviewed. PHYSICAL EXAMINATION: Temperature 98.2, pulse of 92, respiratory rate of 18, blood pressure is 109/55. Saturating at 97% on room air. GENERAL: The patient is alert and oriented x3, not in any acute distress. Well developed, well nourished. HEENT: Pupils are round and equally reacting to light. EOMI. No scleral icterus. No conjunctival pallor. Normocephalic, atraumatic. No pharyngeal erythema. No thyromegaly. CARDIOVASCULAR: S1 and S2 present. No murmurs, rubs, or gallops. PULMONARY: Chest is clear to auscultation, no wheezing or crackles. ABDOMEN: Soft, nontender, nondistended, normoactive bowel sounds. No palpable organomegaly. MUSCULOSKELETAL: No joint swelling or deformity. EXTREMITIES: No cyanosis, clubbing, or pedal edema. NEUROLOGICAL: Gross neurological examination did not reveal any focal deficits. SKIN: No rashes. LABORATORY DATA: Basic metabolic profile is abnormal for mildly low potassium of 3.2, hemoglobin remains stable. ASSESSMENT AND PLAN: 1. Febrile neutropenia source of infection is not clear. No source of infection was found. 2. Non-small cell lung cancer. 3. Bicytopenia or pancytopenia, which improved at this point of time, secondary to chemotherapy. 4. Odynophagia due to radiation therapy. 5. Mucositis, which is improving at this point of time. 6. Gastroesophageal reflux disease. 7. Hypothyroidism. 8. Urinary tract infection possibility, although patient received enough days of antibiotics. Because of diarrhea, which I believe is antibiotic associated, antibiotics were discontinue. Patient will be started on IV fluids. Will watch her today. Repeat electrolytes tomorrow. Possibility of discharge tomorrow.
[2016-10-11] MEDS: MORPHINE SULFATE 2 MG/ML SYRINGE IVP PRN ×2 (12:40→23:15)
[2016-10-11] MEDS: POTASSIUM CHLORIDE 10 MEQ, LIDOCAINE 2% INJ 10 MG in SODIUM CHLORIDE 0.9% 100 ML IVPB SCH ×2 (12:42→14:23)
[2016-10-11] MEDS: POTASSIUM CHLORIDE 10 MEQ, LIDOCAINE 2% INJ 10 MG in SODIUM CHLORIDE 0.9% 100 ML IV SCH ×2 (18:07→19:59)
[2016-10-11] MEDS: PANTOPRAZOLE 40 MG TABLET PO SCH (20:02)
[2016-10-11 22:42] VITALS: RESP 16
[2016-10-11] MEDS: DRONABINOL 2.5 MG CAP PO SCH (23:14)
[2016-10-12] MEDS: POTASSIUM CHLORIDE 10 MEQ, LIDOCAINE 2% INJ 10 MG in SODIUM CHLORIDE 0.9% 100 ML IV SCH ×2 (02:02→04:19)
[2016-10-12] MEDS: SODIUM CHLORIDE 0.9% 1,000 ML IV SCH (04:34)
[2016-10-12] MEDS: SENNOSIDES 8.6 MG TAB PO SCH (07:02)
[2016-10-12] MEDS: DRONABINOL 2.5 MG CAP PO SCH (07:03)
[2016-10-12] MEDS: MAG HYDROX/AL HYDROX/SIMETH 30 ML, LIDOCAINE VISCOUS 30 ML, diphenhydrAMINE ELIXIR 75 M... PO SCH ×4 (07:04)
[2016-10-12] MEDS: LEVOTHYROXINE 25 MCG TAB PO SCH (07:04)
[2016-10-12] MEDS: SUCRALFATE 1 GM TAB PO SCH (07:04)
[2016-10-12] MEDS: ALPRAZolam 0.25 MG TAB PO SCH (07:05)
[2016-10-12 07:35] VITALS: BP 108/55; PULSE 90; TEMP 98.3
[2016-10-12] MEDS: CHOLESTYRAMINE (WITH SUGAR) 4 GM PACKET PO SCH (10:16)
--- NOTE | 2016-10-12 11:42 | DS ---
DATE OF ADMISSION: 10/06/2016 DATE OF DISCHARGE: 10/12/2016 Patient is admitted for febrile neutropenia, all the cultures are negative and patient was on Augmentin, but patient started having diarrhea. As patient received enough days of antibiotic, I discontinued the antibiotics after which her diarrhea improved and patient will be discharged in stable medical condition to home. Her neutropenia resolved and patient was seen and examined on the day of discharge. Vitals are stable. PHYSICAL EXAMINATION: GENERAL: The patient is alert and oriented x3, not in any acute distress. Well developed, well nourished. HEENT: Pupils are round and equally reacting to light. EOMI. No scleral icterus. No conjunctival pallor. Normocephalic, atraumatic. No pharyngeal erythema. No thyromegaly. CARDIOVASCULAR: S1 and S2 present. No murmurs, rubs, or gallops. PULMONARY: Chest is clear to auscultation, no wheezing or crackles. ABDOMEN: Soft, nontender, nondistended, normoactive bowel sounds. No palpable organomegaly. MUSCULOSKELETAL: No joint swelling or deformity. EXTREMITIES: No cyanosis, clubbing, or pedal edema. NEUROLOGICAL: Gross neurological examination did not reveal any focal deficits. SKIN: No rashes. FINAL DIAGNOSES: 1. Febrile neutropenia without any source of infection. 2. Non-small cell lung cancer. 3. Bicytopenia secondary to chemotherapy. 4. Odynophagia secondary to radiation induced mucositis. 5. Gastroesophageal reflux disease. 6. Hypothyroidism. 7. Urinary tract infection, possibility of urinary tract infection, although cultures are negative but patient received enough days of antibiotics to treat urinary tract infection, about 7 days.
== END 2016-10-12 11:16 | disposition home or self-care (01) | DRG 809 ==
LOC: EC 19:41 → 5MS5E 23:02 → 5ONC 10-07 22:35
PROVIDERS: ADMIT Hospitalist; ATTEND Hospitalist
DX: D70.1 Agranulocytosis secondary to cancer chemotherapy (principal); N39.0 Urinary tract infection, site not specified; C77.1 Secondary and unspecified malignant neoplasm of intrathoracic lymph nodes; C34.11 Malignant neoplasm of upper lobe, right bronchus or lung; K52.1 Toxic gastroenteritis and colitis; K22.10 Ulcer of esophagus without bleeding; R50.81 Fever presenting with conditions classified elsewhere; E86.0 Dehydration; R13.10 Dysphagia, unspecified; E03.9 Hypothyroidism, unspecified; K12.33 Oral mucositis (ulcerative) due to radiation; K21.0 Gastro-esophageal reflux disease with esophagitis; T36.95XA Adverse effect of unspecified systemic antibiotic, initial encounter; T45.1X5A Adverse effect of antineoplastic and immunosuppressive drugs, initial encounter; Z92.3 Personal history of irradiation; Z92.21 Personal history of antineoplastic chemotherapy; Z87.891 Personal history of nicotine dependence; Z86.14 Personal history of Methicillin resistant Staphylococcus aureus infection; Z90.49 Acquired absence of other specified parts of digestive tract; Z90.710 Acquired absence of both cervix and uterus; Y84.2 Radiological procedure and radiotherapy as the cause of abnormal reaction of the patient, or of later complication, without mention of misadventure at the time of the procedure
CPT/HCPCS: 36415; 71020; 80048; 80053; 81001; 84132; 84443; 85025; 87040; 87081; 87086; 87324; 87430; 87502; 96365; 96366; 99285

== ENCOUNTER → 2016-11-01 | Outpatient (CLI) | payer MEDICARE ==
--- NOTE | 2016-11-03 12:58 | PE ---
Nuclear medicine PET/CT HISTORY: Lung carcinoma Patient received 14.6 mCi F-18 FDG intravenously, delayed scanning was performed from the skull base to the mid thighs. Localization and attenuation correction CT scan was performed. Exam is correlated to prior nuclear medicine PET/CT 19 July 2016. neck and chest: Left upper lobe lung nodule is similar in appearance and may have grown approximately 1 mm in the interval. This is within the error of measurement however, no hypermetabolic uptake. The right upper lobe mass extends from the hilar region and abuts the medial aspect of the right upper l obe, shows examinations and is pleural-based measuring approximately 4.4 cm in AP dimension by 2.8 cm in transverse dimension likely decreased in size in the interval, SUV is 5.3, superior right hilar u ptake shows SUV 4.6, subcarinal uptake shows SUV 3.9, right hilar uptake approximately 3.1, these keegan ues at decreased compared to previous. Small pleural effusion has developed in the interval. Some min imal nodularity present in the right lower lobe laterally not seen on prior exam, no suspicious assoc iated uptake, nodule measures only 7 mm Left thyroid uptake measures 4.7 Abdomen pelvis: No significant interval change. Cysts are again noted within the liver. Patient is po st cholecystectomy. No hypermetabolic uptake. Osseous structures unremarkable IMPRESSION: There is some interval improvement in SUV numbers as described, interval reduction in tu mor size although measurement only possible in the axial plane on this CT scan. Interval small pleura l effusion. Hypermetabolic thyroid nodule, consider further workup.
== END | disposition home or self-care (01) ==
LOC: RADPETMAIN 10:04
PROVIDERS: ATTEND Internal Medicine Hematology & Oncology
DX: C34.11 Malignant neoplasm of upper lobe, right bronchus or lung (principal); J90 Pleural effusion, not elsewhere classified; E04.1 Nontoxic single thyroid nodule
CPT/HCPCS: 78815; A9552

== ENCOUNTER → 2016-11-03 | Outpatient (CLI) | payer MEDICARE ==
--- NOTE | 2016-11-04 10:24 | US ---
EXAMINATION TYPE: US thyroid st tissue head/neck DATE OF EXAM: 11/03/2016 4:39 PM COMPARISON: Previous study dated 04/10/2016 CLINICAL HISTORY: E04.2 Thyroid Nodule. GLAND SIZE: Right Lobe: 4.5 x 1.8 x 1.6 cm Overall Parenchyma: heterogenous Left Lobe: 3.9 x 1.2 x 1.2 cm Overall Parenchyma: heterogeneous Isthmus Thickness: 0.2 cm NODULES RIGHT: # of nodules measured on right: 2 1. 1.8 X 4.5 x 1.6 cm isoechoic mixed nodule at the upper pole with well-defined margins. This nod ule is wider than tall and shows intranodular vascularity. Prior size: 1.9 x 2.0 x 1.4 cm 2. 0.7 X 0.5 x 0.7 cm echogenic solid nodule at the lower pole with well-defined margins . This nod ule is wider than tall and shows no intranodular vascularity. Prior size: 0.6 x 0.6 x 0.5 cm LEFT: # of nodules measured on left: 2 1. 1.1 X 0.9 x 0.9 cm echogenic solid nodule at the mid pole with well-defined margins. This nodul e is taller than wide and shows intranodular vascularity. Prior size: 1.3 x 1.0 x 1.0 cm 2. 0.5 X 0.7 x 0.5 cm isoechoic mixed nodule at the lower pole with well-defined margins. This nodul e is wider than tall and shows intranodular vascularity. no prior measurement ISTHMUS: # of nodules measured in the isthmus: 0 Bilateral neck scanned, no evidence of lymphadenopathy. IMPRESSION: ENLARGING RIGHT-SIDED THYROID NODULE. CONSIDERATION MIGHT BE GIVEN TO BIOPSY.
== END | disposition home or self-care (01) ==
LOC: RADUSMAIN 15:40
PROVIDERS: ATTEND Internal Medicine Endocrinology, Diabetes & Metabolism
DX: E04.1 Nontoxic single thyroid nodule (principal)
CPT/HCPCS: 76536

== ENCOUNTER 2017-01-11 14:04 | Inpatient (IN) | payer MEDICARE ==
[2017-01-11] MEDS ORDERED: IBUPROFEN 600 MG TAB PO STA (14:41)
[2017-01-11] MEDS ORDERED: ACETAMINOPHEN TAB 500 MG TAB PO STA (14:41)
--- NOTE | 2017-01-11 14:50 | ED ---
General Adult HPI - General Chief complaint: Fever Stated complaint: fever/cancer pt-sent by Dr. Wolf Time Seen by Provider: 01/11/17 14:35 Source: patient, RN notes reviewed Mode of arrival: ambulatory Limitations: no limitations - History of Present Illness Initial comments: This is a 71-year-old female who presents to the emergency department claiming that she is on maintenance dose of chemotherapy every 3 weeks and her last dose was 3 weeks ago. Patient states yesterday morning she woke up and had the chills and she felt a little nauseated yesterday. Patient states this morning she had the same thing and continue to be nauseated has a very slight cough. Patient denies any difficulty breathing shortness of breath or palpitation per patient denies any chest pain. Patient states she has no sensation down in her perineum since she's had chemotherapy so she cannot tell if she has urinary tract infection or not. Patient denies any incontinence or urinary retention that she knows of. Patient denies any back pain. Patient denies any skin lesions. Patient denies any neck stiffness. - Related Data Home Medications Medication Instructions Recorded Confirmed Levothyroxine Sodium [Synthroid] 25 mcg PO QAM 07/08/16 01/11/17 ALPRAZolam [Xanax] 0.25 mg PO BID PRN 10/06/16 01/11/17 Pantoprazole Sodium [Protonix] 40 mg PO DAILY 10/06/16 01/11/17 Sucralfate [Carafate] 1 gm PO W/SUPPER 10/06/16 01/11/17 Folic Acid 1 mg PO DAILY 01/11/17 01/11/17 predniSONE See Taper PO DIRECTED 01/11/17 01/11/17 Allergies Allergy/AdvReac Type Severity Reaction Status Date / Time latex Allergy Rash/Hives Verified 01/11/17 15:39 aspartame AdvReac Nausea & Verified 01/11/17 15:39 Vomiting & Diarrhea Review of Systems ROS Statement: Those systems with pertinent positive or pertinent negative responses have been documented in the HPI. ROS Other: All systems not noted in ROS Statement are negative. Past Medical History Past Medical History: Cancer, GERD/Reflux, Thyroid Disorder Additional Past Medical History / Comment(s): Non-small cell lung CA, completed 7 rounds of chemotherapy and 33 radiation treatments in September 2016. History of Any Multi-Drug Resistant Organisms: MRSA Date of last positivie culture/infection: 2007 MDRO Source:: vagina Past Surgical History: Cholecystectomy, Hysterectomy, Orthopedic Surgery, Tonsillectomy Additional Past Surgical History / Comment(s): sinus surgery x 3, bladder stent , lt foot with screws, EGD 07/10/16, left arm surgery Past Anesthesia/Blood Transfusion Reactions: No Reported Reaction Past Psychological History: No Psychological Hx Reported Smoking Status: Former smoker Past Alcohol Use History: None Reported Additional Past Alcohol Use History / Comment(s): smoked 7+ years quit 2010 uses vapor currently Past Drug Use History: None Reported - Past Family History Brother(s) Family Medical History: Cancer Additional Family Medical History / Comment(s): nonhodgkins General Exam - General Exam Comments Initial Comments: GENERAL: Patient is well-developed and well-nourished. Patient is nontoxic and well- hydrated and is in mild distress. ENT: Neck is soft and supple. No significant lymphadenopathy is noted. Oropharynx is clear. Moist mucous membranes. Neck has full range of motion without eliciting any pain. EYES: The sclera were anicteric and conjunctiva were pink and moist. Extraocular movements were intact and pupils were equal round and reactive to light. Eyelids were unremarkable. PULMONARY: Unlabored respirations. Good breath sounds bilaterally. No audible rales rhonchi or wheezing was noted. CARDIOVASCULAR: There is a regular rate and rhythm without any murmurs gallops or rubs. ABDOMEN: Soft and nontender with normal bowel sounds. No palpable organomegaly was noted. There is no palpable pulsatile mass. SKIN: Skin is clear with no lesions or rashes and otherwise unremarkable. NEUROLOGIC: Patient is alert and oriented x3. Cranial nerves II through XII are grossly intact. Motor and sensory are also intact. Normal speech, volume and content. Symmetrical smile. MUSCULOSKELETAL: Normal extremities with adequate strength and full range of motion. No lower extremity swelling or edema. No calf tenderness. LYMPHATICS: No significant lymphadenopathy is noted PSYCHIATRIC: Normal psychiatric evaluation. Normal interpersonal interactions appears functionally intact in deals appropriately with others. No signs of depression. No signs of anxiety. Limitations: no limitations Course Vital Signs 01/11/17 01/11/17 01/11/17 14:37 15:45 16:54 Temperature 101.3 F H 99.5 F Pulse Rate 118 H 92 92 Respiratory 20 18 18 Rate Blood Pressure 106/59 117/59 112/78 O2 Sat by Pulse 97 96 99 Oximetry Medical Decision Making - Medical Decision Making EKG shows sinus tachycardia with an occasional PAC at a rate of [address] interval 136 QRS is 86 QT interval 336 QTC is 472. EKG shows no ST segment elevation or depression or T wave abnormalities are noted Chest x-ray shows a right upper lobe infiltrate that is larger than previous chest x-rays. I started the patient on Levaquin. I spoke with Dr. Cox admitted the patient I wrote admitting orders. I ran the case by Dr. Martin and he agreed the patient did not need to go to the unit. - Lab Data Result diagrams: 01/11/17 15:10 01/11/17 15:10 Lab Results 01/11/17 01/11/17 01/11/17 Range/Units 15:10 15:10 15:10 WBC 9.7 (3.8-10.6) k/uL RBC 4.26 (3.80-5.40) m/uL Hgb 13.7 (11.4-16.0) gm/dL Hct 40.9 (34.0-46.0) % MCV 96.1 (80.0-100.0) fL MCH 32.2 (25.0-35.0) pg MCHC 33.6 (31.0-37.0) g/dL RDW 14.4 (11.5-15.5) % Plt Count 242 (150-450) k/uL Neutrophils % 94 % Lymphocytes % 3 % Monocytes % 1 % Eosinophils % 1 % Basophils % 0 % Neutrophils # 9.1 H (1.3-7.7) k/uL Lymphocytes # 0.3 L (1.0-4.8) k/uL Monocytes # 0.1 (0-1.0) k/uL Eosinophils # 0.1 (0-0.7) k/uL Basophils # 0.0 (0-0.2) k/uL PT (9.0-12.0) sec INR (<1.1) APTT (22.0-30.0) sec Sodium 132 L (137-145) mmol/L Potassium 3.9 (3.5-5.1) mmol/L Chloride 98 (98-107) mmol/L Carbon Dioxide 22 (22-30) mmol/L Anion Gap 12 mmol/L BUN 19 H (7-17) mg/dL Creatinine 0.86 (0.52-1.04) mg/dL Est GFR (MDRD) Af Amer >60 (>60 ml/min/1.73 sqM) Est GFR (MDRD) Non-Af >60 (>60 ml/min/1.73 sqM) Glucose 248 H (74-99) mg/dL Plasma Lactic Acid Mao (0.7-2.0) mmol/L Calcium 8.7 (8.4-10.2) mg/dL Total Bilirubin 0.8 (0.2-1.3) mg/dL AST 19 (14-36) U/L ALT 29 (9-52) U/L Alkaline Phosphatase 83 (38-126) U/L Total Creatine Kinase 27 L (30-135) U/L CK-MB (CK-2) 0.3 (0.0-2.4) ng/mL CK-MB (CK-2) Rel Index 1.1 Troponin I <0.012 (0.000-0.034) ng/mL Total Protein 6.4 (6.3-8.2) g/dL Albumin 3.5 (3.5-5.0) g/dL Urine Color Urine Appearance (Clear) Urine pH (5.0-8.0) Ur Specific Charlton (1.001-1.035) Urine Protein (Negative) Urine Glucose (UA) (Negative) Urine Ketones (Negative) Urine Blood (Negative) Urine Nitrite (Negative) Urine Bilirubin (Negative) Urine Urobilinogen (<2.0) mg/dL Ur Leukocyte Esterase (Negative) Urine RBC (0-5) /hpf Urine WBC (0-5) /hpf Ur Squamous Epith Cells (0-4) /hpf Urine Bacteria (None) /hpf Urine Mucus (None) /hpf Influenza Type A RNA (Not Detectd) Influenza Type B (PCR) (Not Detectd) 01/11/17 01/11/17 01/11/17 Range/Units 15:10 15:10 15:10 WBC (3.8-10.6) k/uL RBC (3.80-5.40) m/uL Hgb (11.4-16.0) gm/dL Hct (34.0-46.0) % MCV (80.0-100.0) fL MCH (25.0-35.0) pg MCHC (31.0-37.0) g/dL RDW (11.5-15.5) % Plt Count (150-450) k/uL Neutrophils % % Lymphocytes % % Monocytes % % Eosinophils % % Basophils % % Neutrophils # (1.3-7.7) k/uL Lymphocytes # (1.0-4.8) k/uL Monocytes # (0-1.0) k/uL Eosinophils # (0-0.7) k/uL Basophils # (0-0.2) k/uL PT 10.3 (9.0-12.0) sec INR 1.0 (<1.1) APTT 23.3 (22.0-30.0) sec Sodium (137-145) mmol/L Potassium (3.5-5.1) mmol/L Chloride (98-107) mmol/L Carbon Dioxide (22-30) mmol/L Anion Gap mmol/L BUN (7-17) mg/dL Creatinine (0.52-1.04) mg/dL Est GFR (MDRD) Af Amer (>60 ml/min/1.73 sqM) Est GFR (MDRD) Non-Af (>60 ml/min/1.73 sqM) Glucose (74-99) mg/dL Plasma Lactic Acid Mao 4.4 H* (0.7-2.0) mmol/L Calcium (8.4-10.2) mg/dL Total Bilirubin (0.2-1.3) mg/dL AST (14-36) U/L ALT (9-52) U/L Alkaline Phosphatase (38-126) U/L Total Creatine Kinase (30-135) U/L CK-MB (CK-2) (0.0-2.4) ng/mL CK-MB (CK-2) Rel Index Troponin I (0.000-0.034) ng/mL Total Protein (6.3-8.2) g/dL Albumin (3.5-5.0) g/dL Urine Color Urine Appearance (Clear) Urine pH (5.0-8.0) Ur Specific Charlton (1.001-1.035) Urine Protein (Negative) Urine Glucose (UA) (Negative) Urine Ketones (Negative) Urine Blood (Negative) Urine Nitrite (Negative) Urine Bilirubin (Negative) Urine Urobilinogen (<2.0) mg/dL Ur Leukocyte Esterase (Negative) Urine RBC (0-5) /hpf Urine WBC (0-5) /hpf Ur Squamous Epith Cells (0-4) /hpf Urine Bacteria (None) /hpf Urine Mucus (None) /hpf Influenza Type A RNA Not Detected (Not Detectd) Influenza Type B (PCR) Not Detected (Not Detectd) 01/11/17 Range/Units 15:10 WBC (3.8-10.6) k/uL RBC (3.80-5.40) m/uL Hgb (11.4-16.0) gm/dL Hct (34.0-46.0) % MCV (80.0-100.0) fL MCH (25.0-35.0) pg MCHC (31.0-37.0) g/dL RDW (11.5-15.5) % Plt Count (150-450) k/uL Neutrophils % % Lymphocytes % % Monocytes % % Eosinophils % % Basophils % % Neutrophils # (1.3-7.7) k/uL Lymphocytes # (1.0-4.8) k/uL Monocytes # (0-1.0) k/uL Eosinophils # (0-0.7) k/uL Basophils # (0-0.2) k/uL PT (9.0-12.0) sec INR (<1.1) APTT (22.0-30.0) sec Sodium (137-145) mmol/L Potassium (3.5-5.1) mmol/L Chloride (98-107) mmol/L Carbon Dioxide (22-30) mmol/L Anion Gap mmol/L BUN (7-17) mg/dL Creatinine (0.52-1.04) mg/dL Est GFR (MDRD) Af Amer (>60 ml/min/1.73 sqM) Est GFR (MDRD) Non-Af (>60 ml/min/1.73 sqM) Glucose (74-99) mg/dL Plasma Lactic Acid Mao (0.7-2.0) mmol/L Calcium (8.4-10.2) mg/dL Total Bilirubin (0.2-1.3) mg/dL AST (14-36) U/L ALT (9-52) U/L Alkaline Phosphatase (38-126) U/L Total Creatine Kinase (30-135) U/L CK-MB (CK-2) (0.0-2.4) ng/mL CK-MB (CK-2) Rel Index Troponin I (0.000-0.034) ng/mL Total Protein (6.3-8.2) g/dL Albumin (3.5-5.0) g/dL Urine Color Yellow Urine Appearance Cloudy H (Clear) Urine pH 5.0 (5.0-8.0) Ur Specific Charlton 1.016 (1.001-1.035) Urine Protein Trace H (Negative) Urine Glucose (UA) 2+ H (Negative) Urine Ketones Negative (Negative) Urine Blood Trace H (Negative) Urine Nitrite Negative (Negative) Urine Bilirubin Negative (Negative) Urine Urobilinogen <2.0 (<2.0) mg/dL Ur Leukocyte Esterase Large H (Negative) Urine RBC 3 (0-5) /hpf Urine WBC 11 H (0-5) /hpf Ur Squamous Epith Cells 3 (0-4) /hpf Urine Bacteria Occasional H (None) /hpf Urine Mucus Many H (None) /hpf Influenza Type A RNA (Not Detectd) Influenza Type B (PCR) (Not Detectd) Disposition Clinical Impression: Sepsis, Pneumonia Disposition: ADMITTED IP TO THIS HOSP Referrals: Jaxson Tejeda MD [Primary Care Provider] - 1-2 days Time of Disposition: 17:07
[2017-01-11] MEDS: SODIUM CHLORIDE 0.9% 500 ML IV SCH (15:11)
[2017-01-11 15:25] LABS: Basophils % (A) 0 %; CH 31.6; Eosinophils # (A) 0.1 k/uL (0-0.7); Eosinophils % (A) 1 %; HCT 40.9 % (34.0-46.0); HDW 2.45; HGB 13.7 gm/dL (11.4-16.0); Luc # (Auto) 0.05; Luc % (Auto) 1; Lymphocytes # (A) 0.3 k/uL (1.0-4.8); Lymphocytes % (A) 3 %; MCH 32.2 pg (25.0-35.0); MCHC 33.6 g/dL (31.0-37.0); MCV 96.1 fL (80.0-100.0); Mean Platelet Volume 6.5; Monocytes # (A) 0.1 k/uL (0-1.0); Monocytes % (A) 1 %; Neutrophils # (A) 9.1 k/uL (1.3-7.7); Neutrophils % (A) 94 %; RBC 4.26 m/uL (3.80-5.40); RDW 14.4 % (11.5-15.5); WBC 9.7 k/uL (3.8-10.6)
[2017-01-11 15:36] LABS: ALT 29 U/L (9-52); AST 19 U/L (14-36); Alkaline Phosphatase 83 U/L (38-126); Anion Gap 12 mmol/L; Blood Urea Nitrogen 19 mg/dL (7-17); Calcium 8.7 mg/dL (8.4-10.2); Carbon Dioxide 22 mmol/L (22-30); Chloride 98 mmol/L (98-107); Glucose 248 mg/dL (74-99); Non-African American GFR(MDRD) >60 (>60 ml/min/1.73 sqM); Partial Thromboplastin Time 23.3 sec (22.0-30.0); Potassium 3.9 mmol/L (3.5-5.1); Prothrombin Time 10.3 sec (9.0-12.0); Sodium 132 mmol/L (137-145); Total Bilirubin 0.8 mg/dL (0.2-1.3); Total Protein 6.4 g/dL (6.3-8.2)
[2017-01-11 15:40] LABS: Appearance,Urine Cloudy (Clear); Bacteria,Urine Occasional /hpf; Bilirubin,Urine Negative (Negative); Glucose,Urine (UA) 2+ (Negative); Ketones,Urine Negative (Negative); Leukocyte Esterase,Urine Large (Negative); Mucus,Urine Many /hpf; Nitrite,Urine Negative (Negative); Particle Count 11814; Protein,Urine Trace (Negative); RBC,Urine 3 /hpf (0-5); Specific Gravity,Urine 1.016 (1.001-1.035); Squamous Epithelial Cell,Urine 3 /hpf (0-4); UA Billing (MACRO vs. MICRO) MICRO; Urobilinogen,Urine <2.0 mg/dL (<2.0); WBC,Urine 11 /hpf (0-5)
--- NOTE | 2017-01-11 15:41 | XR ---
EXAMINATION TYPE: XR chest 2V DATE OF EXAM: 01/11/2017 3:35 PM COMPARISON: 10/06/2016 HISTORY: Fever TECHNIQUE: Frontal and lateral views of the chest are obtained. FINDINGS: There is some spiculated infiltrate at the superior right hilum. Trachea is deviated to th e right side. Left lung is relatively clear. There is no heart failure. Heart size is normal. There i s no pleural effusion. There is right upper lobe mild volume loss. CONCLUSION: There is infiltrate in the right upper lobe that is slightly worse than last exam and consistent wit h treated lung cancer. There could be superimposed acute pneumonia. I would consider also recurrent t umor. There is slight increased density over the right pulmonary hilum compared to last exam the is s uspicious for recurrent tumor.
[2017-01-11 15:48] LABS: Creatine Kinase 27 U/L (30-135)
[2017-01-11 16:02] LABS: Creatine Kinase MB 0.3 ng/mL (0.0-2.4); Troponin I <0.012 ng/mL (0.000-0.034)
[2017-01-11] MEDS ORDERED: SODIUM CHLORIDE 0.9% 2,000 ML IV ONE (16:06)
[2017-01-11] MEDS ORDERED: PNEUMONIA PROTOCOL UTILIZED 1 EACH MISC PO PRN (17:08)
[2017-01-11 18:54] VITALS: BMI 20.9
[2017-01-11] MEDS: SODIUM CHLORIDE 0.9% 1,000 ML IV SCH (20:35)
[2017-01-11] MEDS: LEVOFLOXACIN 750MG-D5W PMX 750 MG in DEXTROSE/WATER 1 150ML.BAG IVPB SCH (20:35)
[2017-01-11] MEDS: predniSONE 20 MG TAB PO SCH (20:36)
[2017-01-11] MEDS: ALPRAZolam 0.25 MG TAB PO PRN (23:44)
[2017-01-12 06:24] LABS: Basophils % (A) 0 %; CH 31.8; CHCM 32.7; Eosinophils % (A) 0 %; HCT 35.9 % (34.0-46.0); HDW 2.46; HGB 11.6 gm/dL (11.4-16.0); Luc # (Auto) 0.04; Luc % (Auto) 1; Lymphocytes # (A) 0.3 k/uL (1.0-4.8); Lymphocytes % (A) 4 %; MCH 31.4 pg (25.0-35.0); MCHC 32.2 g/dL (31.0-37.0); MCV 97.5 fL (80.0-100.0); Mean Platelet Volume 6.6; Monocytes # (A) 0.2 k/uL (0-1.0); Monocytes % (A) 3 %; Neutrophils # (A) 6.6 k/uL (1.3-7.7); Neutrophils % (A) 92 %; RBC 3.68 m/uL (3.80-5.40); RDW 14.3 % (11.5-15.5); WBC 7.2 k/uL (3.8-10.6); WBC (Perox) 7.34
[2017-01-12 06:43] LABS: Anion Gap 5 mmol/L; Blood Urea Nitrogen 14 mg/dL (7-17); Calcium 8.3 mg/dL (8.4-10.2); Carbon Dioxide 25 mmol/L (22-30); Chloride 106 mmol/L (98-107); Glucose 143 mg/dL (74-99); Non-African American GFR(MDRD) >60 (>60 ml/min/1.73 sqM); Potassium 4.2 mmol/L (3.5-5.1); Sodium 136 mmol/L (137-145)
[2017-01-12] MEDS: SODIUM CHLORIDE 0.9% 1,000 ML IV SCH ×2 (06:50→17:29)
[2017-01-12] MEDS: LEVOTHYROXINE 25 MCG TAB PO SCH (06:52)
[2017-01-12] MEDS: PANTOPRAZOLE 40 MG TABLET PO SCH (06:53)
--- NOTE | 2017-01-12 08:15 | XR ---
EXAMINATION TYPE: XR chest 2V DATE OF EXAM: 01/12/2017 HISTORY: pneumonia. REFERENCE: Previous study dated 01/11/2017. FINDINGS: Lung volumes are prominent. There is fullness in the right suprahilar and right paratracheal region. There is increased opacity i n the right upper lobe. This may represent postobstructive pneumonitis. This is unchanged from the pr evious study. The lungs are otherwise clear. Pleural space are clear. Heart size is normal. IMPRESSION: 1. SUPRAHILAR PROMINENCE ON THE RIGHT MAY REPRESENT ADENOPATHY OR TUMOR. 2. RIGHT UPPER LOBE AIRSPACE DISEASE MAY REPRESENT PNEUMONIA OR POSTOBSTRUCTIVE PNEUMONITIS.
[2017-01-12] MEDS: ENOXAPARIN 40 MG/0.4 ML SYRINGE SQ SCH (09:27)
[2017-01-12] MEDS: predniSONE 20 MG TAB PO SCH ×2 (09:27→21:14)
[2017-01-12] MEDS: ALPRAZolam 0.25 MG TAB PO PRN ×2 (11:58→21:14)
[2017-01-12] MEDS ORDERED: FOLIC ACID 1 MG TAB PO SCH (12:00)
--- NOTE | 2017-01-12 14:15 | HP ---
DATE OF ADMISSION: 01/11/2017 PRESENTING COMPLAINT: Chills and fever. HISTORY OF PRESENTING COMPLAINT: A very pleasant 71-year-old patient of Dr. Tejeda. Also being followed by Dr. Wolf. Patient has a diagnosis of non-small cell lung cancer and has got chemo and radiation treatment. Patient now getting chemo every 3 weeks. Initial treatment was done by Dr. John. Other chronic stable medical conditions include GERD, hypothyroid. Patient's appetite has been stable. Weight has been stable. Patient presents with 3 days of having chills, a fever up to 101. Patient states previously she had a UTI, but never gets any dysuria or urinary frequency, tired, sitting up. REVIEW OF SYSTEMS: CONSTITUTIONAL: Tired, febrile. HEENT: None. RESPIRATORY: Patient has got a dry cough. CARDIOVASCULAR: None. GASTROINTESTINAL: None. GENITOURINARY: None. MUSCULOSKELETAL: None. DERMATOLOGICAL: None. HEMATOLOGICAL: None. LYMPHATICS: None. PSYCHIATRY: None. NEUROLOGICAL: None. PAST MEDICAL HISTORY: GERD, hypothyroid, non-small cell lung cancer. PAST SURGICAL HISTORY: Cholecystectomy, hysterectomy, orthopedic surgery, tonsillectomy, sinus surgery, bladder stent, left foot screws, EGD, left arm surgery. SOCIAL HISTORY: Patient smoked for about 7 years; stopped in 2010. , homemaker. Family history of non-Hodgkin's lymphoma. MEDICATIONS: 1. Prednisone taper. 2. Carafate 1 gm p.o. with supper. 3. Protonix 40 mg p.o. daily. 4. Synthroid 25 mcg p.o. daily. 5. Folic acid 1 mg p.o. daily. 6. Xanax 0.25 p.o. b.i.d. p.r.n. Allergies to LATEX and ASPARTAME. On examination, T-max 101.3, pulse 118, respirations 20, blood pressure was 106/59, pulse ox 97% on room air. GENERAL APPEARANCE: Sitting up, comfortable. EYES: Pupils equal. Conjunctivae normal. HEENT: External appearance of nose and ears normal. Oral cavity normal. NECK: JVD not raised. Mass not palpable. RESPIRATORY: Effort normal. LUNGS: Slightly decreased breath sounds. CARDIOVASCULAR: First and second sounds normal. No edema. ABDOMEN: Soft, nontender. Liver and spleen not palpable. LYMPHATIC: No lymph node palpable in neck or axillae. PSYCHIATRY: Alert and oriented x3. Mood and affect normal. NEUROLOGICAL: Pupils equal. Cranial nerves grossly intact. Power and sensation grossly intact. INVESTIGATIONS: White count 9.7, hemoglobin 13.7. Potassium 3.9, sodium 132, glucose 248, UA positive for leuko esterase, WBC. ASSESSMENT: 1. Acute urinary tract infection causing sepsis, present on admission. 2. Hyperglycemia from steroids. 3. Lactic acidosis from above. 4. Hyponatremia, likely hyposmolar. 5. Non-small cell lung cancer, status post chemo and radiation treatment. 6. Radiation pneumonitis. 7. Gastroesophageal reflux disease. 8. Hypothyroidism. PLAN: Patient's cultures pending. Patient is put on IV Levaquin, getting IV fluids. Feeling a bit better. Home medications are resumed. Patient is put on Lovenox. She is concerned why she is getting ( ) detail. Sugars are doing better.
[2017-01-12] MEDS: LEVOFLOXACIN 750MG-D5W PMX 750 MG in DEXTROSE/WATER 1 150ML.BAG IVPB SCH (17:28)
[2017-01-12] MEDS ORDERED: SUCRALFATE 1 GM TAB PO SCH (17:30)
--- NOTE | 2017-01-12 18:24 | P.CONS ---
History of Present Illness - Reason for Consult Consult date: 01/12/17 pneumonia Requesting physician: Bill Nicholson - Chief Complaint temp, dizzy, weak - History of Present Illness Ms. Yoo is a very pleasant female pt of Dr. Wolf who presented with nausea and mild "stomach pain" in late 2015. A CXR revealed RUL abnormality, CT of chest revealed 3.5 cm RUL mass with hilar and subcarinal lymphadenopathy, PET 07/19/16 revealed intense uptake of 11.9 in RUL mass, R hilar & infrahilar lymphadenopathy of 10.0 as well as increase uptake in left thoracic inlet of 5.9, unclear etiology, no distant mets. Bronchoscopy on 07/[address] Flores revealed NSCLC. Pt was started on concurrent weekly chemo with carbo/taxol and radiation 08/18 and completed 7 cycles of chemo. Treatment follow up scans showed no evidence of disease. She was then placed on maintenance alimta starting in november and she has had 2 cycles, due for treatment this week. Pt states having a temp of 101.1F at home with associated symptoms of low back pain, weakness, dizziness and "sick feeling". She was instructed to come to the hospital for further work up. She is receiving hydration and abx, her symptoms are better, no fever since the one on admission, she is tolerating oral intake, no sore throat, cough, she is on steroids for radiation pneumonitis , she denies nausea, indigestion, abd pain, dysuria, hematuria, diarrhea or constipation, swelling or bleeding. Review of Systems All systems: negative Constitutional: Reports as per HPI Past Medical History Past Medical History: Cancer, GERD/Reflux, Thyroid Disorder Additional Past Medical History / Comment(s): Non-small cell lung CA, completed 7 rounds of chemotherapy and 33 radiation treatments in September 2016., hypoglycemia History of Any Multi-Drug Resistant Organisms: MRSA Year Discovered:: 2007 MDRO Source:: vagina Past Surgical History: Cholecystectomy, Hysterectomy, Orthopedic Surgery, Tonsillectomy Additional Past Surgical History / Comment(s): sinus surgery x 3, bladder stent , lt foot with screws, EGD 07/10/16, left arm surgery Past Anesthesia/Blood Transfusion Reactions: No Reported Reaction Past Psychological History: No Psychological Hx Reported Smoking Status: Former smoker Past Alcohol Use History: None Reported Additional Past Alcohol Use History / Comment(s): smoked 7+ years quit 2010 uses vapor currently Past Drug Use History: None Reported - Past Family History Brother(s) Family Medical History: Cancer Additional Family Medical History / Comment(s): nonhodgkins Medications and Allergies Home Medications Medication Instructions Recorded Confirmed Type Levothyroxine Sodium [Synthroid] 25 mcg PO QAM 07/08/16 01/11/17 History ALPRAZolam [Xanax] 0.25 mg PO BID PRN 10/06/16 01/11/17 History Pantoprazole Sodium [Protonix] 40 mg PO DAILY 10/06/16 01/11/17 History Sucralfate [Carafate] 1 gm PO W/SUPPER 10/06/16 01/11/17 History Folic Acid 1 mg PO DAILY 01/11/17 01/11/17 History predniSONE See Taper PO DIRECTED 01/11/17 01/11/17 History Allergies Allergy/AdvReac Type Severity Reaction Status Date / Time latex Allergy Rash/Hives Verified 01/11/17 15:39 aspartame AdvReac Nausea & Verified 01/11/17 15:39 Vomiting & Diarrhea Physical Exam Vitals: Vital Signs Temp Pulse Pulse Resp BP BP Pulse Ox 01/12/17 16:15 97.8 F 92 18 120/58 97 01/12/17 12:00 88 16 125/73 98 01/12/17 09:11 97.2 F L 77 16 117/63 97 01/12/17 09:10 16 01/12/17 03:58 96.9 F L 68 16 118/58 97 01/12/17 00:00 97.2 F L 73 17 138/75 98 01/11/17 20:00 97.3 F L 82 18 130/77 96 01/11/17 18:29 98.6 F 102 H 112/57 96 01/11/17 17:49 98.4 F 76 18 135/85 96 01/11/17 17:36 102 H Intake and Output 01/12/17 01/12/17 01/12/17 06:59 14:59 22:59 Intake Total 240 Balance 240 Intake: Oral 240 Other: Voiding Method Toilet Toilet # Voids 1 2 Weight 65 kg - Constitutional General appearance: average body habitus, cooperative, no acute distress - EENT Eyes: EOMI, PERRLA, normal appearance ENT: hearing grossly normal, normal oropharynx - Neck Neck: no lymphadenopathy, normal ROM - Respiratory Respiratory: bilateral: CTA - Cardiovascular Rhythm: regular Heart sounds: normal: S1, S2 Abnormal Heart Sounds: no systolic murmur, no diastolic murmur, no rub, no S3 Gallop, no S4 Gallop, no click, no other leg Peripheral Edema: bilateral: None - Gastrointestinal General gastrointestinal: no absent bowel sounds, no decreased bowel sounds, no distended, no hepatomegaly, no hyperactive bowel sounds, normal bowel sounds, no organomegaly, no rigid, no scaphoid, soft, no splenomegaly, no tenderness, no umbilical hernia, no ventral hernia - Integumentary Integumentary: normal, normal turgor - Neurologic Neurologic: CNII-XII intact - Musculoskeletal Musculoskeletal: strength equal bilaterally - Psychiatric Psychiatric: A&O x's 3, appropriate affect, intact judgment & insight Results CBC & Chem 7: 01/12/17 05:52 01/12/17 05:52 Labs: Abnormal Lab Results - Last 24 Hours (Table) 01/11/17 01/12/17 01/12/17 Range/Units 18:29 05:52 05:52 RBC 3.68 L (3.80-5.40) m/uL Lymphocytes # 0.3 L (1.0-4.8) k/uL Sodium 136 L (137-145) mmol/L Glucose 143 H (74-99) mg/dL Plasma Lactic Acid Mao 3.6 H* (0.7-2.0) mmol/L Calcium 8.3 L (8.4-10.2) mg/dL Microbiology - Last 24 Hours (Table) 01/11/17 15:10 Blood Culture - Preliminary Blood No Growth after 24 hours 01/11/17 15:10 Urine Culture - Preliminary Urine,Voided Chest x-ray: report reviewed Assessment and Plan (1) History of lung cancer Narrative/Plan: Pt is currently on maintenance alimta, no acute changes in treatment plan, cycle 3 may need to be postponed due to acute illness, will clarify and inform patient Status: Chronic Plan: Pt improving with current treatments. We will defer to attending for medical management. We will monitor CBC but pt is past leonid, do not anticipate acute drop in blood counts.
[2017-01-13] MEDS: SODIUM CHLORIDE 0.9% 1,000 ML IV SCH (02:45)
[2017-01-13] MEDS: LEVOTHYROXINE 25 MCG TAB PO SCH (06:30)
[2017-01-13] MEDS: ENOXAPARIN 40 MG/0.4 ML SYRINGE SQ SCH (07:29)
[2017-01-13 07:51] VITALS: BP 118/62; PULSE 89; RESP 16; TEMP 97.4
[2017-01-13] MEDS: PANTOPRAZOLE 40 MG TABLET PO SCH (08:26)
[2017-01-13] MEDS: predniSONE 20 MG TAB PO SCH (08:26)
[2017-01-13] MEDS: ALPRAZolam 0.25 MG TAB PO PRN (08:30)
[2017-01-14] MEDS ORDERED: predniSONE 20 MG TAB PO SCH (09:00)
--- NOTE | 2017-01-14 13:30 | DS ---
DATE OF ADMISSION: 01/11/2017 DATE OF DISCHARGE: 01/13/2017 FINAL DIAGNOSES: 1. Acute urinary tract infection causing sepsis, present on admission. Patient received antibiotic treatment. 2. Hyperglycemia from steroids. 3. Lactic acidosis from above. 4. Hyponatremia, likely hypoosmolar. 5. Small-cell lung cancer, status post chemotherapy, radiation treatment. 6. Radiation pneumonitis. 7. Gastroesophageal reflux disease. 8. Hypothyroidism. CONSULTANTS: Dr. Wolf from hematology/oncology. HOSPITAL COURSE: This patient presented with 3 days of chills and a fever, was found to have a UTI; however, had no overt symptoms of dysuria or urinary frequency. Urine culture was taken. Urinalysis was sent. Blood cultures were done. Urinalysis revealed positive for urinary tract infection. Urine cultures were negative. Blood cultures also were negative. Antibiotics initiated. Patient's symptoms improved, feeling better and as such, patient is now being discharged home today. Questions regarding patient's discharge home care discussed with the patient in detail with Dr. Cox at the bedside. DISCHARGE MEDICATIONS: 1. Levothyroxine 25 mcg p.o. q.a.m. 2. Xanax 0.25 mg p.o. b.i.d. p.r.n. 3. Protonix 40 mg p.o. daily. 4. Carafate 1 g p.o. with supper. 5. Folic acid 1 mg p.o. daily. 6. Prednisone. See taper as directed. 7. Levofloxacin 500 mg p.o. daily for 7 days. DISPOSITION: Patient has been discharged home The patient was seen and examined by Nurse Practitioner Jaleesa Milner and all elements of the case discussed with attending, Dr. Cox. I performed a history and physical examination of this patient and discussed the same with the dictator. I agree with the dictator's note. Any additional findings/opinions, etc. will be noted.
--- NOTE | 2017-01-15 17:10 | DS ---
DATE OF ADMISSION: 01/11/2017 DATE OF DISCHARGE: 01/13/2017 This patient was seen and examined by me on 01/13/2017. I reviewed discharge summary with my nurse practitioner Ms. Milner, discussed and agreed with the rest. Patient was admitted with UTI and sepsis that responded well to antibiotics. Doing much better at the time of discharge. On exam: LUNGS: Slightly decreased breath sounds. CARDIOVASCULAR: First and second sounds normal. Patient is afebrile. Cultures were negative and care discussed with the patient in detail. Discharge planning more than 35 minutes.
--- NOTE | 2017-01-15 17:28 | DS ---
DATE OF ADMISSION: 01/11/2017 DATE OF DISCHARGE: 01/13/2017 Attending note: This patient was seen and examined by me on 01/13/2017. Patient urine cultures came to be negative. Responded well to antibiotics. Doing much better the time of discharge. On exam, lungs are clear. CARDIOVASCULAR: First and second sounds normal. The rest of the discharge note as per my nurse practitioner.
== END 2017-01-13 10:58 | disposition home or self-care (01) | DRG 872 ==
LOC: EC 14:04 → 6SEL 17:08 → 4MS4W 01-12 16:05
PROVIDERS: ADMIT Hospitalist; ATTEND Hospitalist
DX: A41.9 Sepsis, unspecified organism (principal); J70.0 Acute pulmonary manifestations due to radiation; C34.90 Malignant neoplasm of unspecified part of unspecified bronchus or lung; N39.0 Urinary tract infection, site not specified; E87.1 Hypo-osmolality and hyponatremia; E03.9 Hypothyroidism, unspecified; K21.9 Gastro-esophageal reflux disease without esophagitis; T38.0X5A Adverse effect of glucocorticoids and synthetic analogues, initial encounter; R73.9 Hyperglycemia, unspecified; Z87.891 Personal history of nicotine dependence; Z91.040 Latex allergy status; Z79.899 Other long term (current) drug therapy; Z80.7 Family history of other malignant neoplasms of lymphoid, hematopoietic and related tissues; Y84.2 Radiological procedure and radiotherapy as the cause of abnormal reaction of the patient, or of later complication, without mention of misadventure at the time of the procedure; Y92.9 Unspecified place or not applicable
CPT/HCPCS: 36415; 71020; 80048; 80053; 81001; 82550; 82553; 83605; 84484; 85025; 85610; 85730; 87040; 87086; 87502; 93005; 94760; 96361; 96365; 99285

== ENCOUNTER → 2017-02-12 | Outpatient (CLI) | payer MEDICARE ==
[2017-02-12 11:59] LABS: Blood Urea Nitrogen 15 mg/dL (7-17); Non-African American GFR(MDRD) >60 (>60 ml/min/1.73 sqM)
--- NOTE | 2017-02-12 15:03 | CT ---
EXAMINATION TYPE: CT chest abdomen w con DATE OF EXAM: 02/12/2017 REFERENCE: Previous PET/CT dated 11/01/2016 HISTORY: C34.11 Lung ca HISTORY: lung ca, pain in posterior right upper chest CT DLP: 363.0 mGy Automated exposure control for dose reduction was used. TECHNIQUE: Helical acquisition through the abdomen and pelvis was obtained following the oral ingesti on of with Oral Contrast and following intravenous administration of 100 mL of Omnipaque 300. The jarod a was reformatted in axial, coronal and sagittal projections. FINDINGS: The patient's right paraspinal mass is no longer clearly identified. There is atelectatic change in this location, likely a postradiation change. There is scarring in the left apex. There is a small residual pleural effusion on the right. There is no significant axillary internal mammary, mediastinal or hilar adenopathy. There is no peric ardial fluid. The heart is not enlarged. Within the abdomen, there are numerous, simple appearing hepatic cysts. The gallbladder is been remov ed. The spleen is normal. Both adrenal glands appear normal. There are parapelvic cysts involving the left kidney. The kidneys are otherwise unremarkable. The pancreas is unremarkable. There is no significant retroperitoneal adenopathy. Large and small bowel loops appear normal. There are no bony destructive lesions. IMPRESSION: 1. MARKED REDUCTION IN THE SIZE OF THE PATIENT'S RIGHT UPPER LOBE PULMONARY MASS. 2. POSTRADIATION CHANGE IN MEDIAL ASPECT OF THE RIGHT LUNG. 3. SMALL RESIDUAL PLEURAL EFFUSION ON THE RIGHT. 4. PROBABLE HEPATIC CYSTS. THIS COULD BE CONFIRMED WITH ULTRASOUND.
== END | disposition home or self-care (01) ==
LOC: RADCTMAIN 11:06
PROVIDERS: ATTEND Radiology Radiation Oncology
DX: C34.11 Malignant neoplasm of upper lobe, right bronchus or lung (principal); J90 Pleural effusion, not elsewhere classified; Z88.3 Allergy status to other anti-infective agents; Z98.890 Other specified postprocedural states; Z92.3 Personal history of irradiation
CPT/HCPCS: 82565; 84520; 71260; 74160; 36415; Q9967

== ENCOUNTER → 2017-02-19 | Outpatient (CLI) | payer MEDICARE ==
[2017-02-19 13:43] LABS: ALT 79 U/L (9-52); AST 46 U/L (14-36); Alkaline Phosphatase 83 U/L (38-126); Anion Gap 10 mmol/L; Blood Urea Nitrogen 16 mg/dL (7-17); Calcium 9.3 mg/dL (8.4-10.2); Carbon Dioxide 27 mmol/L (22-30); Chloride 103 mmol/L (98-107); Glucose 112 mg/dL (74-99); Non-African American GFR(MDRD) >60 (>60 ml/min/1.73 sqM); Potassium 4.8 mmol/L (3.5-5.1); Sodium 140 mmol/L (137-145); Total Bilirubin 0.7 mg/dL (0.2-1.3); Total Protein 6.7 g/dL (6.3-8.2)
== END | disposition home or self-care (01) ==
LOC: LABWHC1 12:54
PROVIDERS: ATTEND Radiology Radiation Oncology
DX: C34.11 Malignant neoplasm of upper lobe, right bronchus or lung (principal)
CPT/HCPCS: 36415; 80053

== ENCOUNTER 2017-04-05 14:51 | Emergency (ER) | payer MEDICARE ==
[2017-04-05] MEDS ORDERED: ACETAMINOPHEN TAB 500 MG TAB PO STA (15:33)
--- NOTE | 2017-04-05 15:38 | ED ---
General Adult HPI - General Chief complaint: Fever Stated complaint: fever/chemo patient Time Seen by Provider: 04/05/17 15:20 Source: patient, RN notes reviewed Mode of arrival: ambulatory Limitations: no limitations - History of Present Illness Initial comments: Patient is a pleasant 71-year-old female presenting to the emergency department with fever. Patient does have a history of lung cancer. Patient did undergo chemotherapy and radiation and is currently on maintenance chemotherapy, last was Thursday. Patient has felt achy for several days. Patient noticed fever last night. Patient has not taken Tylenol. Patient has mild cough that is chronic and unchanged. No dysuria. No upper respiratory symptoms. Patient has occasional episodes of very mild lower abdominal discomfort. No constipation or diarrhea. - Related Data Home Medications Medication Instructions Recorded Confirmed Levothyroxine Sodium [Synthroid] 25 mcg PO QAM 07/08/16 04/05/17 ALPRAZolam [Xanax] 0.25 mg PO BID PRN 10/06/16 04/05/17 Pantoprazole Sodium [Protonix] 40 mg PO DAILY 10/06/16 04/05/17 Sucralfate [Carafate] 1 gm PO TID PRN 10/06/16 04/05/17 Folic Acid 1 mg PO DAILY 01/11/17 04/05/17 Albuterol Sulfate [Proair Hfa] 1 - 2 puff INHALATION RT-Q6H PRN 04/05/17 Cyanocobalamin [Vitamin B-12 1,000 mcg SQ Q63D 04/05/17 04/05/17 Injection] Magic Mouthwash 10 ml PO QID PRN 04/05/17 04/05/17 Mupirocin [Mupirocin 2%] 1 applic TOPICAL DAILY PRN 04/05/17 04/05/17 Ondansetron [Zofran] 2 mg PO BID 04/05/17 04/05/17 Previous Rx's Medication Instructions Recorded Ciprofloxacin HCl [Cipro] 500 mg PO Q12HR #20 tablet 04/05/17 metroNIDAZOLE [Flagyl] 500 mg PO TID #30 tab 04/05/17 Allergies Allergy/AdvReac Type Severity Reaction Status Date / Time latex Allergy Rash/Hives Verified 04/05/17 15:55 aspartame AdvReac Nausea & Verified 04/05/17 15:55 Vomiting & Diarrhea narcotics AdvReac Nausea & Uncoded 04/05/17 15:55 Vomiting Review of Systems ROS Statement: Those systems with pertinent positive or pertinent negative responses have been documented in the HPI. ROS Other: All systems not noted in ROS Statement are negative. Constitutional: Denies: fever Eyes: Denies: eye pain ENT: Denies: ear pain Respiratory: Denies: cough Cardiovascular: Denies: chest pain Endocrine: Reports: fatigue Gastrointestinal: Reports: abdominal pain Genitourinary: Denies: dysuria Musculoskeletal: Denies: back pain Skin: Denies: rash Neurological: Denies: headache Past Medical History Past Medical History: Cancer, GERD/Reflux, Thyroid Disorder Additional Past Medical History / Comment(s): Non-small cell lung CA, completed 7 rounds of chemotherapy and 33 radiation treatments in September 2016., hypoglycemia History of Any Multi-Drug Resistant Organisms: MRSA Date of last positivie culture/infection: 2007 MDRO Source:: vagina Past Surgical History: Cholecystectomy, Hysterectomy, Orthopedic Surgery, Tonsillectomy Additional Past Surgical History / Comment(s): sinus surgery x 3, bladder stent , lt foot with screws, EGD 07/10/16, left arm surgery Past Anesthesia/Blood Transfusion Reactions: No Reported Reaction Past Psychological History: No Psychological Hx Reported Smoking Status: Former smoker Past Alcohol Use History: None Reported Past Drug Use History: None Reported - Past Family History Brother(s) Family Medical History: Cancer Additional Family Medical History / Comment(s): nonhodgkins General Exam Limitations: no limitations General appearance: alert, in no apparent distress Head exam: Present: atraumatic Eye exam: Present: normal appearance, PERRL ENT exam: Present: normal oropharynx Neck exam: Present: normal inspection Respiratory exam: Present: normal lung sounds bilaterally Cardiovascular Exam: Present: normal rhythm, tachycardia GI/Abdominal exam: Present: soft, tenderness (Mild tenderness between the suprapubic region and left lower quadrant.) Extremities exam: Present: normal inspection Back exam: Present: normal inspection Neurological exam: Present: alert Psychiatric exam: Present: normal affect, normal mood Skin exam: Present: normal color Course Vital Signs 04/05/17 04/05/17 15:04 16:06 Temperature 101.3 F H 100.0 F H Pulse Rate 125 H 92 Respiratory 20 18 Rate Blood Pressure 112/57 107/58 O2 Sat by Pulse 97 96 Oximetry EKG Findings - EKG Comments: EKG Findings:: Sinus tachycardia 113. WA 148. QRS 96. QT 3:30. QTC 452. Normal axis. No QRS. Normal ST-T. Medical Decision Making - Medical Decision Making Patient reevaluated and resting comfortably in bed. Patient updated on results. Patient requests discharge. Case discussed with Dr. Kemp who does recommend Cipro and Flagyl and is okay with discharge and follow-up. Patient is updated and happy to be discharged. - Lab Data Result diagrams: 04/05/17 15:24 04/05/17 15:24 Lab Results 04/05/17 04/05/17 04/05/17 Range/Units 15:24 15:24 15:24 WBC 4.5 (3.8-10.6) k/uL RBC 3.75 L (3.80-5.40) m/uL Hgb 12.1 (11.4-16.0) gm/dL Hct 33.9 L (34.0-46.0) % MCV 90.2 (80.0-100.0) fL MCH 32.1 (25.0-35.0) pg MCHC 35.6 (31.0-37.0) g/dL RDW 12.9 (11.5-15.5) % Plt Count 200 (150-450) k/uL Neutrophils % 64 % Lymphocytes % 16 % Monocytes % 16 % Eosinophils % 2 % Basophils % 0 % Neutrophils # 2.9 (1.3-7.7) k/uL Lymphocytes # 0.7 L (1.0-4.8) k/uL Monocytes # 0.7 (0-1.0) k/uL Eosinophils # 0.1 (0-0.7) k/uL Basophils # 0.0 (0-0.2) k/uL PT (9.0-12.0) sec INR (<1.2) APTT (22.0-30.0) sec Sodium 135 L (137-145) mmol/L Potassium 3.8 (3.5-5.1) mmol/L Chloride 101 (98-107) mmol/L Carbon Dioxide 25 (22-30) mmol/L Anion Gap 9 mmol/L BUN 12 (7-17) mg/dL Creatinine 0.80 (0.52-1.04) mg/dL Est GFR (MDRD) Af Amer >60 (>60 ml/min/1.73 sqM) Est GFR (MDRD) Non-Af >60 (>60 ml/min/1.73 sqM) Glucose 116 H (74-99) mg/dL Plasma Lactic Acid Mao 1.4 (0.7-2.0) mmol/L Calcium 8.8 (8.4-10.2) mg/dL Total Bilirubin 0.7 (0.2-1.3) mg/dL AST 20 (14-36) U/L ALT 48 (9-52) U/L Alkaline Phosphatase 113 (38-126) U/L Total Protein 6.3 (6.3-8.2) g/dL Albumin 3.7 (3.5-5.0) g/dL Urine Color Urine Appearance (Clear) Urine pH (5.0-8.0) Ur Specific [place] (1.001-1.035) Urine Protein (Negative) Urine Glucose (UA) (Negative) Urine Ketones (Negative) Urine Blood (Negative) Urine Nitrite (Negative) Urine Bilirubin (Negative) Urine Urobilinogen (<2.0) mg/dL Ur Leukocyte Esterase (Negative) Urine RBC (0-5) /hpf Urine WBC (0-5) /hpf Ur Squamous Epith Cells (0-4) /hpf Urine Bacteria (None) /hpf Urine Mucus (None) /hpf 04/05/17 04/05/17 Range/Units 15:24 15:41 WBC (3.8-10.6) k/uL RBC (3.80-5.40) m/uL Hgb (11.4-16.0) gm/dL Hct (34.0-46.0) % MCV (80.0-100.0) fL MCH (25.0-35.0) pg MCHC (31.0-37.0) g/dL RDW (11.5-15.5) % Plt Count (150-450) k/uL Neutrophils % % Lymphocytes % % Monocytes % % Eosinophils % % Basophils % % Neutrophils # (1.3-7.7) k/uL Lymphocytes # (1.0-4.8) k/uL Monocytes # (0-1.0) k/uL Eosinophils # (0-0.7) k/uL Basophils # (0-0.2) k/uL PT 10.7 (9.0-12.0) sec INR 1.1 (<1.2) APTT 25.5 (22.0-30.0) sec Sodium (137-145) mmol/L Potassium (3.5-5.1) mmol/L Chloride (98-107) mmol/L Carbon Dioxide (22-30) mmol/L Anion Gap mmol/L BUN (7-17) mg/dL Creatinine (0.52-1.04) mg/dL Est GFR (MDRD) Af Amer (>60 ml/min/1.73 sqM) Est GFR (MDRD) Non-Af (>60 ml/min/1.73 sqM) Glucose (74-99) mg/dL Plasma Lactic Acid Mao (0.7-2.0) mmol/L Calcium (8.4-10.2) mg/dL Total Bilirubin (0.2-1.3) mg/dL AST (14-36) U/L ALT (9-52) U/L Alkaline Phosphatase (38-126) U/L Total Protein (6.3-8.2) g/dL Albumin (3.5-5.0) g/dL Urine Color Yellow Urine Appearance Cloudy H (Clear) Urine pH 5.5 (5.0-8.0) Ur Specific [place] 1.022 (1.001-1.035) Urine Protein Trace H (Negative) Urine Glucose (UA) Negative (Negative) Urine Ketones Negative (Negative) Urine Blood Moderate H (Negative) Urine Nitrite Negative (Negative) Urine Bilirubin Negative (Negative) Urine Urobilinogen <2.0 (<2.0) mg/dL Ur Leukocyte Esterase Trace H (Negative) Urine RBC 7 H (0-5) /hpf Urine WBC 5 (0-5) /hpf Ur Squamous Epith Cells 2 (0-4) /hpf Urine Bacteria Rare H (None) /hpf Urine Mucus Many H (None) /hpf - Radiology Data Radiology results: report reviewed (Computed tomography scan of the abdomen pelvis shows mild thickening of the sigmoid consistent with uncomplicated diverticulitis or colitis.), image reviewed (Chest x-ray shows right upper lobe density with improvement of airspace disease. Persistent right hilar fullness.) Disposition Clinical Impression: Diverticulitis Disposition: HOME SELF-CARE Condition: Stable Instructions: Fever in Adults (ED), Diverticulitis (ED) Additional Instructions: Please follow-up with Dr. Kemp in the beginning of the week as well as primary care physician. Return for increased pain, fever, worsening symptoms or other concerns. Liquid diet. [id number] Tylenol as needed. Prescriptions: Ciprofloxacin HCl [Cipro] 500 mg PO Q12HR #20 tablet metroNIDAZOLE [Flagyl] 500 mg PO TID #30 tab Referrals: Donnie Pantoja MD [STAFF PHYSICIAN] - 1-2 days Digna Altamirano MD [STAFF PHYSICIAN] - 1-2 days Time of Disposition: 17:09
[2017-04-05] MEDS: RX INFO: IV CONTRAST WAS GIVEN 1 EACH MISC MISCELLANE PRN ×2 (15:39→15:40)
[2017-04-05 15:41] LABS: Basophils % (A) 0 %; CH 32.4; CHCM 36.1; Eosinophils # (A) 0.1 k/uL (0-0.7); Eosinophils % (A) 2 %; HCT 33.9 % (34.0-46.0); HDW 3.08; HGB 12.1 gm/dL (11.4-16.0); Luc # (Auto) 0.15; Luc % (Auto) 3; Lymphocytes # (A) 0.7 k/uL (1.0-4.8); Lymphocytes % (A) 16 %; MCH 32.1 pg (25.0-35.0); MCHC 35.6 g/dL (31.0-37.0); MCV 90.2 fL (80.0-100.0); Mean Platelet Volume 7.2; Monocytes # (A) 0.7 k/uL (0-1.0); Monocytes % (A) 16 %; Neutrophils # (A) 2.9 k/uL (1.3-7.7); Neutrophils % (A) 64 %; RBC 3.75 m/uL (3.80-5.40); RDW 12.9 % (11.5-15.5); WBC 4.5 k/uL (3.8-10.6); WBC (Perox) 4.76
[2017-04-05] MEDS ORDERED: SODIUM CHLORIDE 0.9% 500 ML IV SCH (15:45)
[2017-04-05 15:53] LABS: ALT 48 U/L (9-52); AST 20 U/L (14-36); Alkaline Phosphatase 113 U/L (38-126); Anion Gap 9 mmol/L; Blood Urea Nitrogen 12 mg/dL (7-17); Calcium 8.8 mg/dL (8.4-10.2); Carbon Dioxide 25 mmol/L (22-30); Chloride 101 mmol/L (98-107); Glucose 116 mg/dL (74-99); INR 1.1 (<1.2); Non-African American GFR(MDRD) >60 (>60 ml/min/1.73 sqM); Partial Thromboplastin Time 25.5 sec (22.0-30.0); Potassium 3.8 mmol/L (3.5-5.1); Prothrombin Time 10.7 sec (9.0-12.0); Sodium 135 mmol/L (137-145); Total Bilirubin 0.7 mg/dL (0.2-1.3); Total Protein 6.3 g/dL (6.3-8.2)
[2017-04-05 16:04] LABS: Appearance,Urine Cloudy (Clear); Bacteria,Urine Rare /hpf; Bilirubin,Urine Negative (Negative); Glucose,Urine (UA) Negative (Negative); Ketones,Urine Negative (Negative); Leukocyte Esterase,Urine Trace (Negative); Mucus,Urine Many /hpf; Nitrite,Urine Negative (Negative); PH, Urine 5.5 (5.0-8.0); Particle Count 18006; Protein,Urine Trace (Negative); RBC,Urine 7 /hpf (0-5); Specific Gravity,Urine 1.022 (1.001-1.035); Squamous Epithelial Cell,Urine 2 /hpf (0-4); UA Billing (MACRO vs. MICRO) MICRO; Urobilinogen,Urine <2.0 mg/dL (<2.0); WBC,Urine 5 /hpf (0-5)
--- NOTE | 2017-04-05 16:15 | XR ---
EXAMINATION TYPE: XR chest 2V DATE OF EXAM: 04/05/2017 COMPARISON: 01/12/2017 HISTORY: Fever and shortness of breath, currently undergoing chemotherapy for lung cancer. TECHNIQUE: Frontal and lateral views of the chest are obtained. FINDINGS: Right suprahilar airspace disease has minimally improved from the prior exam and again may relate to pneumonitis and/or resolving pneumonia. Right upper lobe mass is stable. Volume loss is no addi of the right lower lobe with right hemidiaphragm elevation. Left lung remains clear. Right hilar fullness may relate to adenopathy. No new consolidation is seen. IMPRESSION: 1. No new consolidation. 2. Right upper lobe spiculated density representing a known primary lung cancer with improvement in t he right suprahilar airspace disease, relating to resolving pneumonia and/or pneumonitis. 3. Persistent right hilar fullness likely relates to adenopathy.
--- NOTE | 2017-04-05 16:55 | CT ---
EXAMINATION TYPE: CT abdomen pelvis w con DATE OF EXAM: 04/05/2017 HISTORY: Generalized abdominal pain. History of lung cancer CT DLP: 587.5mGycm Automated Exposure Control for Dose Reduction was Utilized. CONTRAST: CT scan of the abdomen and pelvis is performed with IV Contrast, patient injected with 100 mL of Omni paque 300. COMPARISON: 02/12/2019 FINDINGS: LUNG BASES: No significant abnormality is appreciated. Small Bochdalek hiatal hernia. Trace right ple ural effusion. LIVER/GB: Again there are numerous simple appearing hepatic cysts, probable focal fatty infiltration in segment IVb, and small hepatic lesions that are too small to accurately characterize. These appear overall stable in comparison to the prior exam of 02/12/2017. Gallbladder is surgically absent. PANCREAS: No significant abnormality is seen. SPLEEN: No significant abnormality is seen. ADRENALS: No significant abnormality is seen. KIDNEYS: Numerous bilateral renal sinus cysts are stable. BOWEL: There is a short segment area of bowel wall thickening of the sigmoid colon containing a singl e diverticulum is seen with a minute amount of pericolonic fat stranding and left fascial plane thick ening. Uterus is surgically absent, however left ovaries demonstrate follicular changes similar in co mparison to the exam of 07/09/2016. Fat stranding and fascial thickening are seen on series 7 image 6 4, 63, and 62 as well as on 61 and 60. These are mild in degree. Remainder the bowel is unremarkable and nondilated. LYMPH NODES: No greater than 1cm abdominal or pelvic lymph nodes are appreciated. OSSEOUS STRUCTURES: No significant abnormality is seen. OTHER: Mild calcific atheromatous changes are seen of the abdominal aorta and its branches. Abdominal aorta is of normal course and caliber.. IMPRESSION: Long segment bowel wall thickening of the sigmoid colon with a few diverticula and lawrence lonic fat stranding relating to either mild uncomplicated diverticulitis or colitis.
[2017-04-05 17:20] VITALS: BP 102/53; PULSE 93; RESP 15; TEMP 99
== END 2017-04-05 17:19 | disposition home or self-care (01) ==
LOC: EC 14:51
DX: K57.92 Diverticulitis of intestine, part unspecified, without perforation or abscess without bleeding (principal); K21.9 Gastro-esophageal reflux disease without esophagitis; E07.9 Disorder of thyroid, unspecified; Z85.118 Personal history of other malignant neoplasm of bronchus and lung; Z87.891 Personal history of nicotine dependence; Z79.899 Other long term (current) drug therapy; Z88.5 Allergy status to narcotic agent; Z88.8 Allergy status to other drugs, medicaments and biological substances; Z91.040 Latex allergy status
CPT/HCPCS: 36415; 93005; 80053; 83605; 85025; 85610; 85730; 81001; 87040; 87086; 71020; 74177; 99284; 96360; Q9967

== ENCOUNTER → 2017-05-27 | Outpatient (CLI) | payer MEDICARE ==
[2017-05-27 18:19] LABS: Blood Urea Nitrogen 14 mg/dL (7-17); Non-African American GFR(MDRD) >60 (>60 ml/min/1.73 sqM)
--- NOTE | 2017-05-28 00:34 | CT ---
EXAMINATION TYPE: CT chest w con DATE OF EXAM: 05/27/2017 COMPARISON: 02/12/2017 HISTORY: 72-year-old female follow-up lung cancer Follow up Lung cancer TECHNIQUE: Contiguous axial scanning of the chest after the administration of 100 mL of Omnipaque 300 . Coronal/sagittal reconstructions performed. CT DLP: 158mGycm. Automatic exposure control utilized for a dose reduction. FINDINGS: Heart is normal size with trace pericardial fluid. Aorta normal caliber with conventional arch vessel branching anatomy. Abnormal right suprahilar and right hilar soft tissue is redemonstrated. This measures approximately 5.1 x 3.0 cm versus 4.5 x 2.3 cm. However, the overall degree of relatively lower density soft tissue is increased in the interval. Additionally, there is decreasing peribronchovascular soft tissue exte nding along the right upper lobe bulla with persistent volume loss and consolidation. Some mild subca rinal soft tissue thickening measuring up to 1 cm thick appears increased in the interval. Increasing small right pleural effusion. No new pulmonary nodule or mass. No thoracic lymphadenopathy seen. Fat-containing left medial Bochdalek hernia. Stable lobulated cyst within the mid liver up to 2.2 cm . Additional hypodense lesions present, likely cysts. A hypervascular focus within the inferior right liver lobe measures 1.6 cm and was not clearly presen t on prior exam. Bones: No osseous destructive process seen. IMPRESSION: 1. Abnormal soft tissue extending up along the right upper lobe peribronchovascular bundle has decrea sed in the interval. 2. However, right perihilar consolidation has increased (5.1 x 3.0 cm versus 4.5 x 2.3 cm, previously ). Uncertain if this represents progressive post radiation consolidation and tumor necrosis or locor egional progression. 3. Also, some subcarinal soft tissue appears slightly thicker from prior exam. Continued close follow -up is recommended to reassess these findings and exclude progression. 4. Continued post radiation therapy volume loss in the right upper lobe and to a lesser extent within the medial right lower lobe 5. Increasing small right pleural effusion. 6. 1.6 cm hypervascular focus within the inferior right liver lobe. An area of vascular shunting is p ossible. However, as this was not seen previously, follow-up is recommended to exclude the possibilit y of metastatic disease. We do note that lung cancer metastases are usually not hypervascular.
== END | disposition home or self-care (01) ==
LOC: RADCTMAIN 17:29
PROVIDERS: ATTEND Radiology Radiation Oncology
DX: C34.11 Malignant neoplasm of upper lobe, right bronchus or lung (principal); J90 Pleural effusion, not elsewhere classified
CPT/HCPCS: 82565; 84520; 71260; 36415; Q9967

== ENCOUNTER → 2017-05-30 | Outpatient (CLI) | payer MEDICARE ==
--- NOTE | 2017-06-01 15:17 | PE ---
Nuclear medicine PET/CT HISTORY: Lung cancer, subsequent visit Patient received 15.2 mCi F-18 FDG intravenously in delayed scanning was performed from the skull bas e to the mid thighs. Localization and attenuation correction CT scan was performed. Correlation to prior nuclear medicine PET/CT 11/01/2016, CT chest 05/27/2017 Neck and CHEST: The soft tissue density in the right upper lobe now shows a confluent area of soft ti ssue with associated air bronchograms as noted on prior CT., SUV is only 2.5. Right pleural effusion has increased in size. There is a pericardial effusion which has developed in the interval. Calcifica tions in the right hilar and subcarinal location are again noted. Left upper lobe nodular density is stable. Right lower lobe granuloma is again seen. Incidental note made of laboratory change in the ma xillary sinuses. There is a thyroid nodule in the left shows increased radiopharmaceutical uptake, SUV is 6.1. Abdomen pelvis: Hypodensities within the liver are again noted. Patient is post cholecystectomy. No e vident adrenal mass. No suspicious hypermetabolic uptake. Physiologic bowel activity is suspected. Osseous structures not significantly changed. IMPRESSION: Enlarging right pleural effusion, new pericardial effusion. Hot nodule in the left thyroi d gland, follow-up is recommended.
== END | disposition home or self-care (01) ==
LOC: RADPETMAIN 08:42
PROVIDERS: ATTEND Internal Medicine Hematology & Oncology
DX: C34.11 Malignant neoplasm of upper lobe, right bronchus or lung (principal); I31.3 Pericardial effusion (noninflammatory); J90 Pleural effusion, not elsewhere classified; E04.1 Nontoxic single thyroid nodule
CPT/HCPCS: 78815; A9552

== ENCOUNTER → 2017-06-18 | Outpatient (CLI) | payer MEDICARE ==
--- NOTE | 2017-07-06 12:36 | ECHOF ---
Referral Reason:I31.3 Pericardial Effusion MEASUREMENTS -------- HEIGHT: 170.2 cm WEIGHT: 63.5 kg BP: 113/65 RVIDd: 2.7 cm (< 3.3) IVSd: 1.1 cm (0.6 - 1.1) LVIDd: 4.2 cm (3.9 - 5.3) LVPWd: 1.1 cm (0.6 - 1.1) IVSs: 1.4 cm LVIDs: 3.2 cm LVPWs: 1.5 cm LAESV Index (A-L): 9.08 ml/m Ao Diam: 2.6 cm (2.0 - 3.7) AV Cusp: 2.1 cm (1.5 - 2.6) LA Diam: 1.6 cm (2.7 - 3.8) MV EXCURSION: 17.896 mm (> 18.000) MV EF SLOPE: 206 mm/s (70 - 150) EPSS: 0.5 cm MV E Myles: 0.42 m/s MV DecT: 126 ms MV A Myles: 0.61 m/s MV E/A Ratio: 0.69 FINDINGS -------- Sinus rhythm. This was a technically adequate study. The left ventricular size is normal. There is borderline concentric left ventricular hypertrophy. Overall left ventricular systolic function is normal with, an EF between 55 - 60 %. The right ventricle is normal in size and function. Normal LA size by volume 22+/-6 ml/m2. RA appears enlarged. Aortic valve is trileaflet and is mildly thickened. There is no evidence of aortic regurgitation. There is no evidence of aortic stenosis. The mitral valve leaflets are mildly thickened. There is trace to mild mitral regurgitation. Trace tricuspid regurgitation present. Right ventricular systolic pressure is normal at < 35 mmHg. There is no evidence of pulmonary hypertension. The pulmonic valve was not well visualized. The aortic root size is normal. Normal inferior vena cava with normal inspiratory collapse consistent with estimated right atrial pre ssure of 5 mmHg. There is a small, generalized pericardial effusion present. CONCLUSIONS -------- 1. Sinus rhythm. 2. This was a technically adequate study. 3. The left ventricular size is normal. 4. There is borderline concentric left ventricular hypertrophy. 5. Overall left ventricular systolic function is normal with, an EF between 55 - 60 %. 6. Normal LA size by volume 22+/-6 ml/m2. 7. RA appears enlarged. 8. Aortic valve is trileaflet and is mildly thickened. 9. The mitral valve leaflets are mildly thickened. 10. There is trace to mild mitral regurgitation. 11. Trace tricuspid regurgitation present. 12. Right ventricular systolic pressure is normal at < 35 mmHg. 13. There is no evidence of pulmonary hypertension. 14. The pulmonic valve was not well visualized. 15. The aortic root size is normal. HELP DESK ASSOCIATE: Maximo Elena RDCS
== END ==
LOC: RADECHMAIN 14:43
PROVIDERS: ATTEND Internal Medicine Hematology & Oncology
DX: I34.0 Nonrheumatic mitral (valve) insufficiency (principal); I35.8 Other nonrheumatic aortic valve disorders
CPT/HCPCS: 93306

== ENCOUNTER 2017-07-08 12:20 | Day surgery (SDC) | payer MEDICARE ==
[2017-07-08 12:38] VITALS: RESP 14; TEMP 97.9
[2017-07-08 13:14] VITALS: BP 103/53; PULSE 82
--- NOTE | 2017-07-08 13:53 | US ---
ULTRASOUND GUIDED FNA THYROID BIOPSY: CLINICAL HISTORY: Request for FNA 1.8 cm right thyroid nodule and 1.1 cm left thyroid nodule FINDINGS: The procedure was explained to the patient. The risks, complications, benefits and alternatives were discussed and any questions were answered. Informed consent was obtained. Patient was placed supin e on the ultrasound table and prepped and draped in the usual sterile fashion. Utilizing a 25 gauge needle, five passes were made into the right and left thyroid nodules. Patient was stable throughout the procedure. Pathology is pending. All elements of maximal barrier technique were utilized. IMPRESSION: 1. Successful ultrasound guided FNA thyroid biopsy.
== END 2017-07-08 13:20 | disposition home or self-care (01) ==
LOC: RADPROMAIN 12:20
PROVIDERS: ATTEND Internal Medicine Endocrinology, Diabetes & Metabolism
DX: E04.1 Nontoxic single thyroid nodule (principal)
CPT/HCPCS: 10022; 76942; 88173; 88305

== ENCOUNTER 2017-08-25 21:55 | Emergency (ER) | payer MEDICARE ==
[2017-08-25 22:03] VITALS: RESP 18
[2017-08-25] MEDS ORDERED: ACETAMINOPHEN TAB 500 MG TAB PO STA (22:15)
--- NOTE | 2017-08-25 22:18 | ED ---
General Adult HPI - General Chief complaint: Fever Stated complaint: fever/cancer patient Time Seen by Provider: 08/25/17 22:05 Source: patient, family, RN notes reviewed Mode of arrival: wheelchair Limitations: no limitations - History of Present Illness Initial comments: Patient is a pleasant 72-year-old female presenting to the emergency department with complaints of fever and cough. Symptoms started yesterday. Symptoms worsened today. Patient saw her doctor this morning and was started on Levaquin. Symptoms have worsened. Patient took Motrin at home without improvement of fever. Patient does have a history of lung cancer. Patient finished chemotherapy and radiation and is currently on maintenance chemotherapy every 3 weeks. Last was 4 days ago. Patient does have cough and congestion and does feel slightly short of breath. No rhinorrhea or sore throat. Patient does have fatigue and chills and myalgias. - Related Data Home Medications Medication Instructions Recorded Confirmed Levothyroxine Sodium [Synthroid] 25 mcg PO QAM 07/08/16 08/25/17 ALPRAZolam [Xanax] 0.25 mg PO BID PRN 10/06/16 08/25/17 Pantoprazole Sodium [Protonix] 40 mg PO HS 10/06/16 08/25/17 Folic Acid 1 mg PO DAILY 01/11/17 08/25/17 Albuterol Sulfate [Proair Hfa] 1 - 2 puff INHALATION RT-Q6H PRN 04/05/17 Cyanocobalamin [Vitamin B-12 1,000 mcg SQ Q63D 04/05/17 08/25/17 Injection] Mupirocin [Mupirocin 2%] 1 applic TOPICAL DAILY PRN 04/05/17 08/25/17 Ondansetron [Zofran] 4 mg PO BID PRN 04/05/17 08/25/17 PEMEtrexed DISODIUM [Alimta] 500 mg IV Q28D 08/25/17 08/25/17 Previous Rx's Medication Instructions Recorded Oseltamivir [Tamiflu] 75 mg PO Q12HR #9 cap 08/25/17 Allergies Allergy/AdvReac Type Severity Reaction Status Date / Time latex Allergy Rash/Hives Verified 08/25/17 22:24 aspartame AdvReac Nausea & Verified 08/25/17 22:24 Vomiting & Diarrhea narcotics AdvReac Nausea & Uncoded 08/25/17 22:02 Vomiting Review of Systems ROS Statement: Those systems with pertinent positive or pertinent negative responses have been documented in the HPI. ROS Other: All systems not noted in ROS Statement are negative. Constitutional: Reports: fever, chills Eyes: Denies: eye pain ENT: Denies: ear pain Respiratory: Reports: cough, dyspnea Cardiovascular: Denies: chest pain Endocrine: Reports: fatigue Gastrointestinal: Denies: abdominal pain Genitourinary: Denies: dysuria Musculoskeletal: Denies: back pain Skin: Denies: rash Neurological: Denies: weakness Past Medical History Past Medical History: Cancer, GERD/Reflux, Thyroid Disorder Additional Past Medical History / Comment(s): Non-small cell lung CA, completed 7 rounds of chemotherapy and 33 radiation treatments in September 2016, Cystoscopy with bladder laceration, Current Chemo therapy q 3 weeks at [facility] , hypoglycemia, theyoid nodules History of Any Multi-Drug Resistant Organisms: MRSA Date of last positivie culture/infection: 2007 MDRO Source:: vagina (previous toe x2 & bladder) Past Surgical History: Cholecystectomy, Hysterectomy, Orthopedic Surgery, Tonsillectomy Additional Past Surgical History / Comment(s): sinus surgery x 3, bladder stent , lt foot with screws, EGD 07/10/16, left arm surgery, thyroid biopsy in [facility] Past Anesthesia/Blood Transfusion Reactions: No Reported Reaction Past Psychological History: No Psychological Hx Reported Smoking Status: Former smoker Past Alcohol Use History: None Reported Past Drug Use History: None Reported - Past Family History Brother(s) Family Medical History: Cancer Additional Family Medical History / Comment(s): nonhodgkins General Exam Limitations: no limitations General appearance: alert, in no apparent distress Head exam: Present: atraumatic Eye exam: Present: normal appearance, PERRL ENT exam: Present: normal oropharynx Neck exam: Present: normal inspection. Absent: meningismus Respiratory exam: Present: normal lung sounds bilaterally Cardiovascular Exam: Present: tachycardia GI/Abdominal exam: Present: soft. Absent: tenderness Extremities exam: Present: normal inspection Neurological exam: Present: alert Psychiatric exam: Present: normal affect, normal mood Skin exam: Present: normal color Course Vital Signs 08/25/17 08/25/17 22:00 22:56 Temperature 102.8 F H Pulse Rate 130 H 120 H Respiratory 18 18 Rate Blood Pressure 129/69 126/66 O2 Sat by Pulse 95 95 Oximetry EKG Findings - EKG Comments: EKG Findings:: Sinus tachycardia 134. OK 144. QRS 90. QT 292. QTC 436. Right axis. Normal QRS. No acute ST change. Medical Decision Making - Medical Decision Making Patient reevaluated and improved. Patient and family updated on results and plan. Patient is comfortable with discharge. Patient is advised to call her oncologist tomorrow. - Lab Data Result diagrams: 08/25/17 22:26 08/25/17 22:26 Lab Results 08/25/17 08/25/17 08/25/17 Range/Units 22:26 22:26 22:26 WBC 5.4 (3.8-10.6) k/uL RBC 4.02 (3.80-5.40) m/uL Hgb 12.7 (11.4-16.0) gm/dL Hct 37.8 (34.0-46.0) % MCV 93.9 (80.0-100.0) fL MCH 31.5 (25.0-35.0) pg MCHC 33.6 (31.0-37.0) g/dL RDW 12.4 (11.5-15.5) % Plt Count 159 (150-450) k/uL Neutrophils % 90 % Lymphocytes % 6 % Monocytes % 1 % Eosinophils % 2 % Basophils % 0 % Neutrophils # 4.8 (1.3-7.7) k/uL Lymphocytes # 0.3 L (1.0-4.8) k/uL Monocytes # 0.1 (0-1.0) k/uL Eosinophils # 0.1 (0-0.7) k/uL Basophils # 0.0 (0-0.2) k/uL PT (9.0-12.0) sec INR (<1.2) APTT (22.0-30.0) sec Sodium 133 L (137-145) mmol/L Potassium 3.9 (3.5-5.1) mmol/L Chloride 100 (98-107) mmol/L Carbon Dioxide 24 (22-30) mmol/L Anion Gap 9 mmol/L BUN 16 (7-17) mg/dL Creatinine 0.80 (0.52-1.04) mg/dL Est GFR (MDRD) Af Amer >60 (>60 ml/min/1.73 sqM) Est GFR (MDRD) Non-Af >60 (>60 ml/min/1.73 sqM) Glucose 143 H (74-99) mg/dL Plasma Lactic Acid Mao (0.7-2.0) mmol/L Calcium 8.7 (8.4-10.2) mg/dL Total Bilirubin 0.7 (0.2-1.3) mg/dL AST 45 H (14-36) U/L ALT 66 H (9-52) U/L Alkaline Phosphatase 118 (38-126) U/L Total Protein 6.0 L (6.3-8.2) g/dL Albumin 3.4 L (3.5-5.0) g/dL Urine Color Urine Appearance (Clear) Urine pH (5.0-8.0) Ur Specific [place] (1.001-1.035) Urine Protein (Negative) Urine Glucose (UA) (Negative) Urine Ketones (Negative) Urine Blood (Negative) Urine Nitrite (Negative) Urine Bilirubin (Negative) Urine Urobilinogen (<2.0) mg/dL Ur Leukocyte Esterase (Negative) Influenza Type A RNA Detected H (Not Detectd) Influenza Type B (PCR) Not Detected (Not Detectd) 08/25/17 08/25/17 08/25/17 Range/Units 22:26 22:26 22:30 WBC (3.8-10.6) k/uL RBC (3.80-5.40) m/uL Hgb (11.4-16.0) gm/dL Hct (34.0-46.0) % MCV (80.0-100.0) fL MCH (25.0-35.0) pg MCHC (31.0-37.0) g/dL RDW (11.5-15.5) % Plt Count (150-450) k/uL Neutrophils % % Lymphocytes % % Monocytes % % Eosinophils % % Basophils % % Neutrophils # (1.3-7.7) k/uL Lymphocytes # (1.0-4.8) k/uL Monocytes # (0-1.0) k/uL Eosinophils # (0-0.7) k/uL Basophils # (0-0.2) k/uL PT 10.8 (9.0-12.0) sec INR 1.1 (<1.2) APTT 24.9 (22.0-30.0) sec Sodium (137-145) mmol/L Potassium (3.5-5.1) mmol/L Chloride (98-107) mmol/L Carbon Dioxide (22-30) mmol/L Anion Gap mmol/L BUN (7-17) mg/dL Creatinine (0.52-1.04) mg/dL Est GFR (MDRD) Af Amer (>60 ml/min/1.73 sqM) Est GFR (MDRD) Non-Af (>60 ml/min/1.73 sqM) Glucose (74-99) mg/dL Plasma Lactic Acid Mao 1.2 (0.7-2.0) mmol/L Calcium (8.4-10.2) mg/dL Total Bilirubin (0.2-1.3) mg/dL AST (14-36) U/L ALT (9-52) U/L Alkaline Phosphatase (38-126) U/L Total Protein (6.3-8.2) g/dL Albumin (3.5-5.0) g/dL Urine Color Yellow Urine Appearance Clear (Clear) Urine pH 6.0 (5.0-8.0) Ur Specific [place] 1.020 (1.001-1.035) Urine Protein Negative (Negative) Urine Glucose (UA) Negative (Negative) Urine Ketones Negative (Negative) Urine Blood Negative (Negative) Urine Nitrite Negative (Negative) Urine Bilirubin 1+ H (Negative) Urine Urobilinogen <2.0 (<2.0) mg/dL Ur Leukocyte Esterase Negative (Negative) Influenza Type A RNA (Not Detectd) Influenza Type B (PCR) (Not Detectd) - Radiology Data Radiology results: image reviewed (Chest x-ray shows right perihilar changes consistent with treated lung cancer. No significant change from old exam.) Disposition Clinical Impression: Influenza Disposition: HOME SELF-CARE Condition: Stable Instructions: Fever in Adults (ED), Influenza (ED) Additional Instructions: Please follow-up with your oncologist in the next day or 2 for recheck. Please also follow-up to primary care physician in the next day or 2 for recheck. Return for difficulty breathing, uncontrolled fevers, weakness, worsening symptoms or other concerns. Continue [id number] Tylenol or Motrin as needed. Prescriptions: Oseltamivir [Tamiflu] 75 mg PO Q12HR #9 cap Referrals: Jaxson Tejeda MD [Primary Care Provider] - 1-2 days Time of Disposition: 23:40
[2017-08-25] MEDS: SODIUM CHLORIDE 0.9% 500 ML IV SCH ×2 (22:28→22:29)
[2017-08-25 22:40] LABS: Basophils % (A) 0 %; Eosinophils # (A) 0.1 k/uL (0-0.7); Eosinophils % (A) 2 %; HCT 37.8 % (34.0-46.0); HGB 12.7 gm/dL (11.4-16.0); Lymphocytes # (A) 0.3 k/uL (1.0-4.8); Lymphocytes % (A) 6 %; MCH 31.5 pg (25.0-35.0); MCHC 33.6 g/dL (31.0-37.0); MCV 93.9 fL (80.0-100.0); Mean Platelet Volume 6.8; Monocytes # (A) 0.1 k/uL (0-1.0); Monocytes % (A) 1 %; Neutrophils # (A) 4.8 k/uL (1.3-7.7); Neutrophils % (A) 90 %; Platelet Count 159 k/uL (150-450); RBC 4.02 m/uL (3.80-5.40); RDW 12.4 % (11.5-15.5); WBC 5.4 k/uL (3.8-10.6)
--- NOTE | 2017-08-25 22:42 | XR ---
EXAMINATION TYPE: XR chest 2V DATE OF EXAM: 08/25/2017 COMPARISON: 04/05/2017 HISTORY: Fever TECHNIQUE: Frontal and lateral views of the chest are obtained. FINDINGS: There is some spiculated density at the right pulmonary hilum. There is slight elevated ri ght diaphragm. Heart size is normal. There is no heart failure. Trachea is deviated slightly to the r ight side. The left lung is clear. IMPRESSION: There is some volume loss on the right side with increased density at the right pulmonar y hilum and paratracheal region consistent with treated lung cancer. No significant change compared t o old exam. No evidence of bronchopneumonia.
[2017-08-25 22:48] LABS: INR 1.1 (<1.2); Partial Thromboplastin Time 24.9 sec (22.0-30.0); Prothrombin Time 10.8 sec (9.0-12.0)
[2017-08-25 22:50] LABS: ALT 66 U/L (9-52); AST 45 U/L (14-36); Albumin 3.4 g/dL (3.5-5.0); Alkaline Phosphatase 118 U/L (38-126); Anion Gap 9 mmol/L; Blood Urea Nitrogen 16 mg/dL (7-17); Calcium 8.7 mg/dL (8.4-10.2); Carbon Dioxide 24 mmol/L (22-30); Chloride 100 mmol/L (98-107); Glucose 143 mg/dL (74-99); Potassium 3.9 mmol/L (3.5-5.1); Sodium 133 mmol/L (137-145); Total Bilirubin 0.7 mg/dL (0.2-1.3)
[2017-08-25 22:57] VITALS: BP 126/66; PULSE 120
[2017-08-25 23:16] LABS: Glucose,Urine (UA) Negative (Negative); Ketones,Urine Negative (Negative); Protein,Urine Negative (Negative)
[2017-08-25 23:17] LABS: Bilirubin,Urine 1+ (Negative); Blood,Urine Negative (Negative)
[2017-08-25 23:18] LABS: Appearance,Urine Clear (Clear); Color,Urine Yellow; Leukocyte Esterase,Urine Negative (Negative); Nitrite,Urine Negative (Negative); Urobilinogen,Urine <2.0 mg/dL (<2.0)
[2017-08-25] MEDS ORDERED: OSELTAMIVIR 75 MG CAP PO SCH (23:30)
[2017-08-25] MEDS ORDERED: OSELTAMIVIR 75 MG CAP PO STA (23:41)
[2017-08-25 23:48] VITALS: TEMP 99.2
== END 2017-08-25 23:55 | disposition home or self-care (01) ==
LOC: EC 21:55
DX: J11.1 Influenza due to unidentified influenza virus with other respiratory manifestations (principal); E07.9 Disorder of thyroid, unspecified; Z86.14 Personal history of Methicillin resistant Staphylococcus aureus infection; Z85.118 Personal history of other malignant neoplasm of bronchus and lung; Z79.899 Other long term (current) drug therapy; Z91.040 Latex allergy status; Z91.018 Allergy to other foods; Z88.5 Allergy status to narcotic agent
CPT/HCPCS: 36415; 71046; 80053; 81003; 83605; 85025; 85610; 85730; 87040; 87502; 93005; 96360; 99284

== ENCOUNTER → 2017-09-05 | Outpatient (CLI) | payer MEDICARE ==
--- NOTE | 2017-09-05 20:08 | PE ---
EXAMINATION TYPE: PET CT fusion skull to thigh DATE OF EXAM: 09/05/2017 COMPARISON: Prior PET/CT May 30, 2017 and older studies. HISTORY: Right upper lung cancer completed chemotherapy August 21, 2017, completed radiation treatme nt October 02, 2015. TECHNIQUE: Following the intravenous administration of 14.90 mCi of F-18 FDG, whole body images are performed from the skull base to the midthigh. Images are reviewed on the computer in the coronal, a xial, and sagittal planes. Reconstructed rotating images are created on independent workstation and reviewed on the computer. A noncontrast CT is performed in conjunction with the PET scan. SCAN: Subsequent Scan FINDINGS: SKULL BASE AND NECK: No suspicious new hypermetabolic uptake is seen on current study. There is rede monstration of hypermetabolic area measuring 1 cm at level of left thyroid gland probable thyroid nod ule axial image 54, correlate with FNA results July 08, 2017. Max SUV is 3.79. CHEST, MEDIASTINUM, AND HILAR REGION: There is persistent small to moderate-sized right pleural effus ion. There is persistent medial right upper lung masslike consolidation with air bronchogram along th e periphery measuring 5.0 x 3.3 cm axial image 70 not significant change from prior study. No suspici ous new hypermetabolic uptake is present. There is persistent right hilar masslike consolidation near axial image 83 not significantly changed from most recent prior without hypermetabolic uptake with infrahilar extension. Both levels correlate area of prior neoplasm on original study July 19, 2016. Subcarinal lymph node now shows mild hypermetabolic uptake on current study measuring subcentimeter i n size axial image 80, max SUV is 3.06. There is persistent stable small size pericardial effusion. There is persistent biapical scarring with right apical pleural fluid and/or thickening. There is sta ble calcified granuloma right lower lobe axial image 105. ABDOMEN AND PELVIS: No suspicious hypermetabolic uptake is identified. OSSEOUS STRUCTURES: No suspicious hypermetabolic uptake is seen. OTHER CT: There is moderate to severe mucosal thickening in the left maxillary sinus more prominent v ersus prior and moderate mucosal thickening right maxillary sinus improved versus prior. There is roas dence of prior surgery at ostiomeatal complex bilaterally redemonstrated which is patent. There is mi ld to moderate mucosal thickening in ethmoid sinuses bilaterally more prominent versus prior. Hypodense lesions felt to reflect simple cysts scattered throughout the liver are redemonstrated. Cho lecystectomy clips are again noted. There is mild facet arthropathy lower lumbar levels. There is multilevel spurring in the spine. Sligh t scoliotic curvature is redemonstrated. Uterus is surgically absent or atrophic in appearance. IMPRESSION: Areas of known neoplasm right upper lobe medial aspect as well as right hilar and infrahi lar regions are stable in size without hypermetabolic uptake. There is now however recurrent hypermet abolic uptake suggesting local neoplastic recurrence at subcentimeter subcarinal lymph node where the re was active neoplasm on original study. No new metastatic disease noted. No additional significant change from most recent PET/CT.
== END | disposition home or self-care (01) ==
LOC: RADPETMAIN 09:36
PROVIDERS: ATTEND Radiology Radiation Oncology
DX: C34.11 Malignant neoplasm of upper lobe, right bronchus or lung (principal)
CPT/HCPCS: 78815; A9552

== ENCOUNTER → 2017-11-28 | Outpatient (CLI) | payer MEDICARE ==
--- NOTE | 2017-11-28 18:07 | PE ---
EXAMINATION TYPE: PET CT fusion skull to thigh DATE OF EXAM: 11/28/2017 COMPARISON: Prior PET/CT September 05, 2017 and older studies. HISTORY: Lung cancer progress study. Completed chemotherapy November 13, 2017. Completed radiation garret tment September 2016. TECHNIQUE: Following the intravenous administration of 12.34 mCi of F-18 FDG, whole body images are performed from the skull base to the midthigh. Images are reviewed on the computer in the coronal, a xial, and sagittal planes. Reconstructed rotating images are created on independent workstation and reviewed on the computer. A noncontrast CT is performed in conjunction with the PET scan. SCAN: Subsequent Scan FINDINGS: SKULL BASE AND NECK: No new areas of abnormal hypermetabolic uptake are seen. There is persistent hy permetabolic uptake left thyroid nodule measuring roughly 1 cm, max SUV is 6.96 on current study. Thi s has been sampled in the past. Correlate clinically. CHEST, MEDIASTINUM, AND HILAR REGION: There is persistent moderate size right pleural effusion withou t abnormal hypermetabolic uptake, this is increased in size from most recent PET/CT. Prominent fluid right apex level remains present. There is stable calcified 3 mm nodule or granuloma right lower lobe axial image 112. There is persistent calcification or sutures with masslike consolidation right suprahilar level that has air bronchograms near axial image 92, no suspicious hypermetabolic uptake is seen. This measures roughly 5.0 x 3.0 cm. This is not significantly changed in appearance from recent PET/CT. Additional area of involvement superior to this near axial image 77 masslike consolidation without hypermetaboli c uptake is unchanged from prior study. No suspicious hypermetabolic uptake is seen at subcarinal level on current study. There is slightly larger small to moderate-sized pericardial effusion without suspicious hypermetabol ic uptake. ABDOMEN AND PELVIS: No new areas of suspicious hypermetabolic uptake are present. There are stable prominent but subcentimeter left groin lymph nodes with mild increased hypermetaboli c uptake, max SUV is 2.6. OSSEOUS STRUCTURES: No suspicious hypermetabolic uptake is seen. OTHER CT: Moderate mucosal thickening in bilateral maxillary sinuses remains present improved from pr ior. There is moderate mucosal thickening in ethmoid sinuses bilaterally redemonstrated. Left apical linear and Nodular scarring is unchanged. There are scattered hypodense lesions throughout the liver felt to reflect simple cysts redemonstrate d. Cholecystectomy clips are again seen. Uterus is surgically absent or markedly atrophic in appearance. Slight underlying scoliotic curvature is redemonstrated. There is disc space narrowing lumbosacral ju nction. There is mild calcified plaque in the abdominal aorta IMPRESSION: Findings consistent with treated neoplasm redemonstrated. No new suspicious areas of hype rmetabolic uptake noted.
== END | disposition home or self-care (01) ==
LOC: RADPETMAIN 14:19
PROVIDERS: ATTEND Internal Medicine Hematology & Oncology
DX: C34.11 Malignant neoplasm of upper lobe, right bronchus or lung (principal); Z92.21 Personal history of antineoplastic chemotherapy
CPT/HCPCS: 78815; A9552

== ENCOUNTER → 2017-12-07 | Day surgery (SDC) | payer MEDICARE ==
[2017-12-07 11:37] VITALS: TEMP 98.8
[2017-12-07 13:05] VITALS: BP 117/53; PULSE 82; RESP 18
--- NOTE | 2017-12-07 13:17 | PCN ---
PROCEDURE NOTE INDICATION: Pleural effusion. A time-out was completed verifying correct patient, procedure, site, positioning , and implant (s) or special equipment if applicable. Ultrasound guidance was/was not used and appropriate fluid pocket was identified and marked. Patient was positioned, prepped and draped in usual sterile fashion. Lidocaine was used to anesthetize the area. A Thoracentesis catheter was introduced into the pleural space and fluid was removed. Blood loss was none. A chest x-ray was ordered to evaluate for pneumothorax. Total Fluid Removed 900 mL Color of Fluid Turbid yellowish pleural Fluid was/was not sent for appropriate laboratory tests. Patient tolerated the procedure well and there were no complications. PREOP DIAGNOSES: Right side pleural effusion. POSTOP DIAGNOSIS: Right side pleural effusion. ESTIMATED BLOOD LOSS: Zero. No bedside complications. Chest x-ray to follow. MMODL / IJN: [id number] /
--- NOTE | 2017-12-07 13:17 | XR ---
EXAMINATION TYPE: XR chest 1V portable DATE OF EXAM: 12/07/2017 COMPARISON: Chest x-ray November 16, [address] and older studies. PET CT November 28, 2017. HISTORY: Status post right-sided thoracentesis TECHNIQUE: Single frontal view of the chest is obtained. FINDINGS: There is persistent small right pleural effusion after thoracentesis. No sizable pneumotho rax is evident. There is background chronic emphysematous change. Left lung remains clear. The cardia c silhouette size is stable and upper limits of normal. The osseous structures are demineralized. U nderlying scoliosis is redemonstrated. Cholecystectomy clips are again seen. IMPRESSION: Residual small to moderate-sized right pleural effusion after thoracentesis. No sizable pneumothorax is seen.
[2017-12-07 17:39] LABS: Appearance,BF Hazy; Color,BF Yellow; Nucleated Cells, Body Fluid 180 /uL; RBC, Body Fluid 250 /uL
[2017-12-07 17:46] LABS: Mononuclear WBC,Body Fluid 47 %; Polynuclear WBC,Body Fluid 5 %; Total Cells Counted,Body Fluid 100
== END ==
LOC: PROCWHC3 10:44
PROVIDERS: ATTEND Internal Medicine Critical Care Medicine
DX: J90 Pleural effusion, not elsewhere classified (principal); C34.91 Malignant neoplasm of unspecified part of right bronchus or lung; J70.0 Acute pulmonary manifestations due to radiation; E06.3 Autoimmune thyroiditis; F17.290 Nicotine dependence, other tobacco product, uncomplicated; J44.9 Chronic obstructive pulmonary disease, unspecified; Z80.7 Family history of other malignant neoplasms of lymphoid, hematopoietic and related tissues; Z79.890 Hormone replacement therapy; Z79.51 Long term (current) use of inhaled steroids; Z79.899 Other long term (current) drug therapy
CPT/HCPCS: 89050; 82945; 83615; 84157; 71045; 32554; J2001; 88108; 88305; 88341; 88342

== ENCOUNTER → 2017-12-07 | Outpatient (CLI) | payer MEDICARE ==
--- NOTE | 2017-12-07 11:47 | US ---
EXAMINATION TYPE: US chest DATE OF EXAM: 12/07/2017 COMPARISON: NONE CLINICAL HISTORY: C34.90 Neoplasm Of Bronchus Or Lung. Pleural Effusion EXAM MEASUREMENTS: Right Pleural Effusion fluid pocket: 13.3 cm Right skin to fluid thickness: 3.0 cm Right side marked for possible thoracentesis outside the dept. - Patient has appt with Dr Sandra rose Pulmonologists are able to review the images in the patient?s EMR. IMPRESSIONS: Moderate right-sided pleural effusion with right lung compressive atelectasis.
== END | disposition home or self-care (01) ==
LOC: RADUSWWP 10:24
PROVIDERS: ATTEND Internal Medicine Critical Care Medicine
DX: C34.90 Malignant neoplasm of unspecified part of unspecified bronchus or lung (principal); J90 Pleural effusion, not elsewhere classified; J98.11 Atelectasis
CPT/HCPCS: 76604

== ENCOUNTER → 2017-12-28 | Outpatient (CLI) | payer MEDICARE ==
[2017-12-28 11:17] LABS: Appearance,Urine Cloudy (Clear); Bacteria,Urine Rare /hpf; Bilirubin,Urine Negative (Negative); Blood,Urine Small (Negative); Color,Urine Yellow; Glucose,Urine (UA) Negative (Negative); Ketones,Urine Negative (Negative); Leukocyte Esterase,Urine Moderate (Negative); Mucus,Urine Many /hpf; Nitrite,Urine Negative (Negative); PH, Urine 5.5 (5.0-8.0); Protein,Urine Trace (Negative); RBC,Urine 15 /hpf (0-5); Specific Gravity,Urine 1.021 (1.001-1.035); Squamous Epithelial Cell,Urine 2 /hpf (0-4); Urobilinogen,Urine <2.0 mg/dL (<2.0); WBC,Urine 10 /hpf (0-5)
--- NOTE | 2017-12-28 13:29 | US ---
EXAMINATION TYPE: US groin LT DATE OF EXAM: 12/28/2017 COMPARISON: PET scan CLINICAL HISTORY: 72-year-old female C77.4 MALIGNANT LOWER LYMPH NODES. Pt states palpable lump left groin with pain that comes and goes/ pt currently on treatment for lung CA TECHNIQUE: Multiple sonographic images of the left groin at the site of pain and clinically palpable abnormality. FINDINGS: Heater Planer Operator notes:Multiple, (up to 9) hypoechoic, vascular lesions within left groin where pt has p alpable and pain compatible with left nodes/ Largest AP measurement= 1.3 cm IMPRESSION: Multiple thickened and borderline sized left inguinal lymph nodes measuring up to 1.3 cm short axis.
== END | disposition home or self-care (01) ==
LOC: RADUSWWP 10:00
PROVIDERS: ATTEND Radiology Radiation Oncology
DX: C77.4 Secondary and unspecified malignant neoplasm of inguinal and lower limb lymph nodes (principal); R30.0 Dysuria
CPT/HCPCS: 81001; 87086

== ENCOUNTER → 2018-03-06 | Outpatient (CLI) | payer MEDICARE ==
--- NOTE | 2018-03-08 06:39 | PE ---
EXAMINATION TYPE: PET CT fusion skull to thigh DATE OF EXAM: 03/06/2018 COMPARISON: CT chest May 27, 2017. CT abdomen and pelvis April 05, [address] Pet CT Ap 2017 and older studies. HISTORY: Lung cancer progress study. Completed chemotherapy March 01, 2018. Completed radiation garret tment September 29, 2017. TECHNIQUE: Following the intravenous administration of 13.87 mCi of F-18 FDG, whole body images are performed from the skull base to the midthigh. Images are reviewed on the computer in the coronal, a xial, and sagittal planes. Reconstructed rotating images are created on independent workstation and reviewed on the computer. A noncontrast CT is performed in conjunction with the PET scan. SCAN: Subsequent Scan FINDINGS: SKULL BASE AND NECK: No new areas of hypermetabolic uptake identified. Stable roughly 1.0 cm hypermetabolic left thyroid nodule axial image 63 with max SUV of 8.31 on curre nt study. CHEST, MEDIASTINUM, AND HILAR REGION: Redemonstration of mild to moderate biapical pleural/parenchyma l scarring. Stable ametabolic subcentimeter anterior left apical nodular nodular consolidation axial image 64. There is persistent small to moderate-sized right pleural effusion diminished in size from prior PET/ CT. There is stable right hilar masslike consolidation with air bronchograms and surgical sutures or calc ification near axial image 92 without hypermetabolic uptake. Suprahilar extension to axial image 75 i s unchanged from prior pet CT without new areas of abnormal hypermetabolic uptake. Findings favor suc cessful treatment change. No new areas of hypermetabolic uptake including subcarinal level are identified on current study. ABDOMEN AND PELVIS: There are persistent prominent borderline enlarged left groin lymph nodes with mi ld hypermetabolic uptake in axial image 224, max SUV is 5.26 current study. OSSEOUS STRUCTURES: . No new areas of abnormal hypermetabolic uptake are seen. OTHER CT: Moderate mucosal thickening in bilateral maxillary sinuses remains present stable from prio r. There is stable moderate mucosal thickening in ethmoid sinuses bilaterally redemonstrated. Left apical linear and Nodular scarring is unchanged. Small to moderate sized stable pericardial effu jarvis is noted. There are scattered hypodense lesions throughout the liver felt to reflect simple cysts redemonstrate d. Cholecystectomy clips are again seen. Slight asymmetric thickening to left adrenal gland without abnormal hypermetabolic uptake near axial image 141 is unchanged from prior. Uterus is surgically absent or markedly atrophic in appearance. Slight underlying scoliotic curvature is redemonstrated. There is disc space narrowing lumbosacral ju nction. There is mild calcified plaque in the abdominal aorta. IMPRESSION: Findings consistent with treated right lung neoplasm redemonstrated. Interval improvement in right-sided pleural effusion noted. Stable hypermetabolic left thyroid nodule and nonspecific lef t groin lymph nodes. No new areas of abnormal hypermetabolic uptake noted.
== END | disposition home or self-care (01) ==
LOC: RADPETMAIN 11:30
PROVIDERS: ATTEND Internal Medicine Hematology & Oncology
DX: C34.11 Malignant neoplasm of upper lobe, right bronchus or lung (principal); J90 Pleural effusion, not elsewhere classified; E04.1 Nontoxic single thyroid nodule
CPT/HCPCS: 78815; A9552

== ENCOUNTER 2018-03-26 09:00 | Day surgery (SDC) | payer MEDICARE ==
[2018-03-25 09:04] VITALS: BMI 20.3
[~2018-03-26 09:00] MED LIST: DEXAMETHASONE SOD PHOSPHATE 10 MG/ML 1 ML VIAL IV ONE; HEPARIN SODIUM,PORCINE 5,000 UNIT/ML 1 ML VIAL SQ ONE; HYDROmorphone 0.5 MG/0.5 ML SYRINGE IVP PRN; LACTATED RINGERS 1,000 ML IV SCH; LIDOCAINE 1% 20 ML VIAL (10MG/ML) FOR IV START INTRADERMA PRN; ceFAZolin IN SWFI 2 GM/20 ML SYRINGE IVP ONE
--- NOTE | 2018-03-26 10:17 | P.GSHP ---
History of Present Illness H&P Date: 03/26/18 Chief Complaint: Lymphadenopathy 72-year-old female with a history of lung cancer. Currently undergoing treatment. Recent PET scan shows suspicious abnormality in the left groin. Patient hasn't felt this small lymph node for the last few months. Past Medical History Past Medical History: Cancer, GERD/Reflux, Thyroid Disorder Additional Past Medical History / Comment(s): Non-small cell lung CA, completed 7 rounds of chemotherapy and 33 radiation treatments in September 2016, Cystoscopy with bladder laceration, Current Chemo therapy q 3 weeks at [facility] , hypoglycemia, thyroid nodules, hx of kidney stones, hx natacha's History of Any Multi-Drug Resistant Organisms: MRSA Date of last positivie culture/infection: 2007 MDRO Source:: vagina (previous toe x2 & bladder) Past Surgical History: Cholecystectomy, Hysterectomy, Orthopedic Surgery, Tonsillectomy Additional Past Surgical History / Comment(s): thoracentesis, eyelid sx, lung bx , sinus surgery x 3, bladder stent, cystoscopy, lt foot with screws, EGD 07/10/16 , left arm surgery, thyroid biopsy in [facility], and [facility] Past Anesthesia/Blood Transfusion Reactions: Previous Problems w/ Anesthesia Additional Past Anesthesia/Blood Transfusion Reaction / Comment(s): very hard to wake up if not light anesthesia Smoking Status: Former smoker - Past Family History Brother(s) Family Medical History: Cancer Additional Family Medical History / Comment(s): nonhodgkins Medications and Allergies Home Medications Medication Instructions Recorded Confirmed Type Levothyroxine Sodium [Synthroid] 25 mcg PO QAM 07/08/16 03/25/18 History ALPRAZolam [Xanax] 0.25 mg PO BID PRN 10/06/16 03/25/18 History Pantoprazole Sodium [Protonix] 40 mg PO HS 10/06/16 03/25/18 History Folic Acid 1 mg PO DAILY 01/11/17 03/25/18 History Albuterol Sulfate [Proair Hfa] 1 - 2 puff INHALATION RT-Q6H PRN 04/05/17 History Cyanocobalamin [Vitamin B-12 1,000 mcg SQ Q63D 04/05/17 03/25/18 History Injection] Mupirocin [Mupirocin 2%] 1 applic TOPICAL DAILY PRN 04/05/17 03/25/18 History Ondansetron [Zofran] 4 mg PO BID PRN 04/05/17 03/25/18 History PEMEtrexed DISODIUM [Alimta] 500 mg IV Q21D 08/25/17 03/25/18 History Cbd Oil 1 applic PO DAILY 03/25/18 History Maitake Mushroom Oil 1 applic PO DAILY 03/25/18 History Allergies Allergy/AdvReac Type Severity Reaction Status Date / Time latex Allergy Rash/Hives Verified 03/25/18 08:53 aspartame AdvReac Nausea & Verified 03/25/18 08:53 Vomiting & Diarrhea narcotics AdvReac Nausea & Uncoded 03/25/18 08:53 Vomiting Surgical - Exam Physical exam: General: Well-developed, well-nourished HEENT: Normocephalic, sclerae nonicteric Abdomen: Nontender, nondistended Extremities: No edema, left inguinal lymph node 1.5-2 cm Neuro: Alert and oriented Assessment and Plan (1) Lymphadenopathy Narrative/Plan: Will proceed with lymph node biopsy at this time. Risks of bleeding, infection , nerve injury, seroma reviewed. Patient understands and wishes to proceed. Current Visit: Yes Status: Acute Code(s): R59.1 - GENERALIZED ENLARGED LYMPH NODES SNOMED Code(s): 11548071
[2018-03-26 10:39] VITALS: RESP 16; TEMP 98.5
[2018-03-26] MEDS ORDERED: ONDANSETRON 4 MG/2 ML VIAL IVP ONE (11:05)
[2018-03-26] MEDS ORDERED: MIDAZOLAM 2 MG/2 ML VIAL IV ONE (11:07)
[2018-03-26] MEDS ORDERED: diphenhydrAMINE 50 MG/ML 1 ML VIAL ONE (11:33)
[2018-03-26] MEDS ORDERED: fentaNYL (PF) 50 MCG/ML 2 ML AMP ONE (11:33)
[2018-03-26] MEDS ORDERED: MIDAZOLAM 2 MG/2 ML VIAL ONE (11:33)
[2018-03-26] MEDS ORDERED: PROPOFOL 10 MG/ML 20 ML VIAL IV ONE (11:33)
[2018-03-26] MEDS ORDERED: ROPIVACAINE 5 MG/ML 30 ML VIAL MISCELLANE ONE ×2 (11:56)
[2018-03-26] MEDS ORDERED: NALOXONE 0.4 MG/ML 1 ML VIAL IV PRN (12:10)
--- NOTE | 2018-03-26 12:13 | P.OP ---
Date of Procedure: 03/26/18 Procedure(s) Performed: PREOPERATIVE DIAGNOSIS: Left inguinal adenopathy POSTOPERATIVE DIAGNOSIS: Same PROCEDURE: Left inguinal lymph node biopsy SURGEON: Jennifer EBL: Minimal ANESTHESIA: Sedation COMPLICATIONS: None OPERATIVE PROCEDURE: Patient was placed in the operative table in the supine position. The patient was placed under sedation at that time. The left groin was prepped and draped in usual sterile fashion. The skin was localized. An oblique incision was made overlying the palpable lymph node in the left groin medially. The lymph node was able to be excised using a combination of blunt dissection and electrocautery. The clip radiator cleaner was used on small lymphatics. The lymph node measured 1.5 cm in size. This is sent to pathology. The subcutaneous tissues were closed using 3-0 Vicryl sutures. The skin was closed using a running 4-0 Monocryl stitch. Skin glue was then applied. DISPOSITION: Stable to recovery room
[2018-03-26 12:30] VITALS: BP 116/56; PULSE 61
== END 2018-03-26 12:57 | disposition home or self-care (01) ==
LOC: OR 09:00
PROVIDERS: ATTEND Surgery
DX: C77.4 Secondary and unspecified malignant neoplasm of inguinal and lower limb lymph nodes (principal); C34.90 Malignant neoplasm of unspecified part of unspecified bronchus or lung; K21.9 Gastro-esophageal reflux disease without esophagitis; E16.2 Hypoglycemia, unspecified; E06.3 Autoimmune thyroiditis; Z79.890 Hormone replacement therapy; Z79.899 Other long term (current) drug therapy; Z91.040 Latex allergy status; Z88.5 Allergy status to narcotic agent; Z92.21 Personal history of antineoplastic chemotherapy; Z92.3 Personal history of irradiation; Z87.442 Personal history of urinary calculi; Z86.14 Personal history of Methicillin resistant Staphylococcus aureus infection; Z87.891 Personal history of nicotine dependence; Z90.49 Acquired absence of other specified parts of digestive tract; Z90.710 Acquired absence of both cervix and uterus
CPT/HCPCS: 88342; 88331; 88307; 88341; 38500; J2250; J1200; J1644; J1100; J2405; J3010; J2795; J2704; J0690

== ENCOUNTER → 2018-04-09 | Outpatient (CLI) | payer MEDICARE ==
--- NOTE | 2018-04-09 16:32 | MR ---
EXAMINATION TYPE: MR brain wo/w con DATE OF EXAM: 04/09/2018 COMPARISON: 08/08/2016 HISTORY: Lung ca, Headaches TECHNIQUE: Multiplanar, multisequence images of the brain and brainstem is performed without and with IV contras t, utilizing 6 mL intravenous Gadavist . FINDINGS: Diffusion weighted images demonstrate no evidence of a recent infarct or other diffusion ab normality. The ventricular system and cisternal spaces are normal in size and appearance. The brai n volume is age appropriate. Midline structures demonstrate normal morphology. The craniocervical junction appears within normal limits. Post contrast images demonstrate a punctate area of enhancement on image 26 within the left parietal lobe. Additionally there is a more sizable area of enhancement measuring 8 mm within the medial aspec t of the superior left parietal lobe on axial image 24. Abnormal signal is also noted on FLAIR imagin g in this location These areas were not seen with certainty on the previous exam. Metastatic lesion i n the differential diagnosis. Short-term follow-up exam confirm stability could be obtained to exclud e metastasis. 14 there is a punctate area of enhancement in the left temporal lobe which also appears new from the prior exam. Measures 3 mm. Second area of enhancement in the anterior left temporal lobe also measuri ng 3 mm. The dural venous sinuses appear patent. There are changes of the moderate to severe chronic sinusitis. There are multiple areas of punctate abnormal signal the white matter which are nonspecific most typi nataliia remote microvascular ischemia. IMPRESSION: 1. There are multiple small areas of enhancement with the largest area seen to measure 8 mm as discus sed above. Metastases in the differential diagnosis. 2. Moderate to severe chronic sinusitis. 3. Minimal nonspecific white matter changes most typical remote microvascular ischemia.
== END | disposition home or self-care (01) ==
LOC: RADMRIMAIN 14:43
PROVIDERS: ATTEND Internal Medicine Hematology & Oncology
DX: R94.02 Abnormal brain scan (principal); C34.11 Malignant neoplasm of upper lobe, right bronchus or lung
CPT/HCPCS: 70553; A9581

== ENCOUNTER → 2018-04-15 | Day surgery (SDC) | payer MEDICARE ==
[~2018-04-15] MED LIST changes: -DEXAMETHASONE SOD PHOSPHATE 10 MG/ML 1 ML VIAL IV ONE; -HEPARIN SODIUM,PORCINE 5,000 UNIT/ML 1 ML VIAL SQ ONE; -HYDROmorphone 0.5 MG/0.5 ML SYRINGE IVP PRN; -LACTATED RINGERS 1,000 ML IV SCH; -LIDOCAINE 1% 20 ML VIAL (10MG/ML) FOR IV START INTRADERMA PRN; +SODIUM CHLORIDE 0.9% 500 ML in EMPTY BAG 1 BAG IV PRN; -ceFAZolin IN SWFI 2 GM/20 ML SYRINGE IVP ONE
[2018-04-15 13:28] VITALS: TEMP 98.2
--- NOTE | 2018-04-15 14:05 | XR ---
EXAMINATION TYPE: XR chest 1V portable DATE OF EXAM: 04/15/2018 COMPARISON: Prior chest 12/07/2017, 12/10/2017 HISTORY: Lung cancer, status post thoracentesis TECHNIQUE: Single frontal view of the chest is obtained. FINDINGS: No evident pneumothorax. Pleural parenchymal changes in the right hemithorax show similar appearance. Heart size is stable. Patient is rotated. IMPRESSION: No evident complication status post thoracentesis.
[2018-04-15 14:32] VITALS: BP 107/57; PULSE 101; RESP 18
--- NOTE | 2018-04-15 18:15 | OP ---
OPERATIVE REPORT PREOPERATIVE DIAGNOSIS: Right-sided pleural effusion. POSTOPERATIVE DIAGNOSIS: Right-sided pleural effusion. PROCEDURE: Right-sided thoracentesis. A time-out was completed verifying correct patient, procedure, site, positioning , and implant (s) or special equipment if applicable. Ultrasound monitoring was not used. Appropriate fluid pocket was identified and marked. Patient was positioned, prepped and draped in usual sterile fashion. Lidocaine was used to anesthetize the area. A Thoracentesis catheter was introduced into the pleural space and fluid was removed. Blood loss was none. Chest x-ray to follow. Total Fluid Removed: 450 mL. Color of Fluid: Dark turbid, yellowish. Patient tolerated the procedure well and there were no bedside complications or bleeding. MMODL / IJN: [id number] /
== END ==
LOC: PROCWHC3 12:45
PROVIDERS: ATTEND Internal Medicine Critical Care Medicine
DX: J90 Pleural effusion, not elsewhere classified (principal); Z85.118 Personal history of other malignant neoplasm of bronchus and lung
CPT/HCPCS: 88108; 88305; 88342; 88341; 71045; 32554; J2001; 76604

== ENCOUNTER → 2018-04-15 | Outpatient (CLI) | payer MEDICARE ==
--- NOTE | 2018-04-15 14:45 | US ---
EXAMINATION TYPE: US chest DATE OF EXAM: 04/15/2018 COMPARISON: NONE CLINICAL HISTORY: J90 Pleural effusion. TECHNIQUE: Targeted ultrasound of the posterior lower EXAM MEASUREMENTS: Right Pleural Effusion pocket size: 8.5 cm Right skin surface to fluid distance: 3.1 cm Right side marked for possible thoracentesis outside the dept. Pulmonologists are able to review the images in the patient?s EMR. IMPRESSIONS: 1. Right pleural effusion
== END | disposition home or self-care (01) ==
LOC: PROCWHC3 12:50
PROVIDERS: ATTEND Internal Medicine Critical Care Medicine
DX: J90 Pleural effusion, not elsewhere classified (principal)
CPT/HCPCS: 76604